=== PATIENT | male | born 1955 | race Caucasian/White ===

== ENCOUNTER 2018-07-18 09:34 | Emergency (ER) | payer MEDICAID, SELFPAY ==
[2018-07-18 09:40] VITALS: BP 151/91; PULSE 108; RESP 16; TEMP 37.4; O2SAT 97
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
[2018-07-18 10:25] VITALS: RESP 16
[2018-07-18 12:15] VITALS: BP 151/91; PULSE 88; RESP 16; TEMP 37.4; O2SAT 97
== END 2018-07-18 12:26 | disposition home or self-care (01) ==
PROVIDERS: Emergency Provider Physician Assistant; PCP Internal Medicine
DX: F41.9 Anxiety disorder, unspecified (principal); M54.9 Dorsalgia, unspecified; I10 Essential (primary) hypertension; Z79.891 Long term (current) use of opiate analgesic
CPT/HCPCS: 36416; 82962; 99283

== ENCOUNTER 2018-09-02 01:19 | Outpatient (CLI) | payer MEDICAID, SELFPAY ==
--- NOTE | 2018-09-02 12:33 | DI.RAD_ITS ---
SYMPTOMS/DIAGNOSIS: PROGRESSIVE LUMBAGO X 5 MONTHS LUMBOSACRAL SPINE: There are no prior comparison exams. The vertebral bodies are well maintained in height. There is severe narrowing of the L 5 - S 1 disc space and circumferentially projecting osteophytes. The remaining disc spaces are well maintained. Small endplate osteophytes are seen at the remaining levels. Facet degenerative changes are present at L 5 - S1. No spondylosis or spondylolisthesis is seen. IMPRESSION: Degenerative disc changes greatest at L 5 - S 1.
== END 2018-09-02 01:39 ==
PROVIDERS: PCP Internal Medicine; Visit Provider Internal Medicine
DX: M54.5 Low back pain (principal); M51.37 Other intervertebral disc degeneration, lumbosacral region
CPT/HCPCS: 72110

== ENCOUNTER 2018-09-20 01:50 | Outpatient (CLI) | payer MEDICAID, SELFPAY ==
--- NOTE | 2018-09-20 14:10 | DI.RAD_ITS ---
SYMPTOMS/DIAGNOSIS: ABRUPT WORSENING LOW BACK PAIN, TENDER RIGHT SACROILIAC JOINT, M53.3, ? SACROILIITIS SI JOINTS: Bilateral DJD is demonstrated. The sacrum is intact. Note is made of disc space narrowing, and discogenic sclerosis and hypertrophic spurring at the L5-S1 level.
== END 2018-09-20 02:10 ==
PROVIDERS: PCP Internal Medicine; Visit Provider Internal Medicine Rheumatology
DX: M54.5 Low back pain (principal); M53.3 Sacrococcygeal disorders, not elsewhere classified
CPT/HCPCS: 72202

== ENCOUNTER 2018-12-27 12:45 | Outpatient (CLI) | payer MEDICAID, SELFPAY ==
--- NOTE | 2018-12-27 06:56 | DI.RAD_ITS ---
SYMPTOMS/DIAGNOSIS: SACROILIAC JOINT DYSFUNCTION PAIN CLINIC SACROILIAC JOINT: Fluoroscopy Time: 12.4 sec C-arm fluoroscopy was utilized by Dr. Anders during a right SI joint injection. Hard copy shows needle placement and injection at the inferior aspect of the right SI joint.
[2018-12-27 12:54] VITALS: BP 155/91; PULSE 95; RESP 18; TEMP 36.6; O2SAT 98
--- NOTE | 2018-12-27 13:49 | PDOC.PAIN_ITS ---
Pain Clinic Procedure Note Current Active Problems Problem Status Onset Sacroiliac joint dysfunction of right side Acute INTRA-ARTICULAR SI JOINT INJECTION JAMARI SNEED has been referred to the [facility] for intra- articular SI joint injection. COMMENTS: I reviewed the notes from Ms. Girard from 11/21/18. Patient was interviewed and the medical record reviewed. There were no medical, pharmacologic, radiographic or other structural contraindications to attempting fluoroscopically guided intra-articular SI joint injection. Risks and expected side effects as well as potential benefit of the procedure were reviewed and voiced concerns addressed. The printed consent form was signed and witnessed. Standard time-out procedure was performed. Patient was placed in the prone position on the fluoroscopy table and automated blood pressure cuff and pulse oximeter applied. The skin entry point for approaching right SI joint was identified under the most advantageous fluoroscopic view and marked. Following thorough Chlorhexadine preparation of the skin and draping and 1% lidocaine infiltration of the skin entry point and subcutaneous tissues, a 22 gauge spinal needle was placed under fluoroscopic guidance into right SI joint was identified under the most advantageous fluoroscopic view and marked. Following thorough Chlorhexadine preparation of the skin and draping and 1% lidocaine infiltration of the skin entry point and subcutaneous tissues, a 22 gauge 3.5 spinal needle was placed under fluoroscopic guidance into right SI joint. Intra-articular placement was confirmed by a clear arthrogram resulting from the injection of 0.25ml Omnipaque 240, 1ml 1% lidocaine, and 80mg Depomedrol were injected intra-articularily with an initial reproduction of a significant component of the usual pain. Vital signs were stable throughout the procedure and were as recorded in the docflowsheet by the nursing staff. If given, dosages of intravenous drugs for anxiolysis and analgesia were documented in MAR. Follow up plans and appointments were discussed with the patient. Post procedure instruction was given as documented in nursing documentation and having met discharge criteria, and was discharged from the [facility]. COMMENTS: This procedure can be completed up to 3 times per 12 months if it is found to be effective. CC: Amber Restrepo
[2018-12-27 13:58] VITALS: BP 125/89; PULSE 91; RESP 18; O2SAT 97
[2018-12-27] MEDS: Omnipaque 240 MG/ML 50 ML BTL IJ (13:59)
[2018-12-27] MEDS: methylPREDNISolone ACETATE 80 MG/ML VIAL IJ (14:00)
== END 2018-12-27 13:05 ==
PROVIDERS: PCP Nurse Practitioner Family; Visit Provider Preventive Medicine Occupational Medicine
DX: M53.3 Sacrococcygeal disorders, not elsewhere classified (principal)
CPT/HCPCS: 27096; 72200; J1040; Q9967

== ENCOUNTER 2019-12-21 16:37 | Outpatient (REF) | payer MEDICAID, SELFPAY ==
[2019-12-21 19:07] LABS: Anion Gap 9.6 mmol/L (3-11); BUN 20 mg/dL (7-18); CO2 27.4 mmol/L (21.0-32.0); CREATININE 1.14 mg/dL (0.70-1.30); Calcium 8.9 mg/dL (8.5-10.1); Calculated LDL 93 mg/dL (<100); Chloride 105 mmol/L (98-107); Cholesterol 194 mg/dL (<200); Glucose 111 mg/dL (74-106); HDL Cholesterol 41 mg/dL (40-60); Potassium 4.2 mmol/L (3.5-5.1); Sodium 142 mmol/L (136-145); Triglyceride 300 mg/dL (<150)
== END 2019-12-21 16:57 ==
LOC: NCHCN 16:37
PROVIDERS: PCP Nurse Practitioner Family; Visit Provider Nurse Practitioner Family
DX: R03.0 Elevated blood-pressure reading, without diagnosis of hypertension (principal); Z13.220 Encounter for screening for lipoid disorders
CPT/HCPCS: 80048; 80061

== ENCOUNTER 2020-01-22 14:56 | Outpatient (REF) | payer MEDICAID, SELFPAY ==
--- NOTE | 2020-01-22 14:35 | SKI_PTH ---
PATIENT: Jasmeet Cardona LOC: [facility] U#:[id number] AGE/SX: 64/M ROOM: RE01/22/[address]: Jose Snyder : 1955 BED: DIS: 01/22/2020 SPEC #: [id number] RECD: 01/23/20 12:41 STATUS: SHAHANA RERamiro #: [id number] OREN: 01/22/20 14:[address]: Jose Snyder DEPT: Surgical Specimen RECD BY: Soheila Mckeon ENTERED: 01/23/20 12:41 SP TYPE: REECE OTHR DR: Amber Restrepo Tissues: 1 - SKIN BIOPSY(SHAVE/PUNCH) Procedures: SKIN LEVEL 4 Comments: [id number]
== END 2020-01-22 15:16 ==
LOC: NCHCN 14:56
PROVIDERS: PCP Nurse Practitioner Family; Visit Provider Internal Medicine
DX: D22.5 Melanocytic nevi of trunk (principal)
CPT/HCPCS: 88305

== ENCOUNTER 2020-08-20 15:42 | Outpatient (REF) | payer MEDICAID, SELFPAY ==
[2020-08-20 19:25] LABS: Abs Immature Grans 0.02 10^3/uL (0.0-0.06); Absolute Basophil Count 0.03 10^3/uL (0.0-0.2); Absolute Eosinophil Count 0.17 10^3/uL (0.0-0.7); Absolute Lymphocyte Count 1.51 10^3/uL (1.2-3.4); Absolute Monocyte Count 0.54 10^3/uL (0.1-0.8); Absolute Neutrophil Count 4.47 10^3/uL (1.2-6.7); Basophils % 0.4; Eosinophils % 2.5; HCT 42.5 % (40.0-50.0); HGB 14.5 g/dL (13.5-17.5); Immature Grans % 0.3; Lymphocytes % 22.4; MCH 29.5 pg (27.0-33.0); MCHC 34.1 % (32.0-36.0); MCV 86.4 fL (80-95); MPV 11.1 fL (8.0-11.0); Neutrophils % 66.4; Nucleated RBC 0 %; Platelet Count 208 10^3/uL (130-400); RBC 4.92 10^6/uL (4.36-5.78); RDW 12.3 % (11.8-14.1); WBC 6.74 10^3/uL (4.4-10.8)
[2020-08-20 19:47] LABS: Iron 71 ug/dL (65-175); Total Iron Binding Capacity 322 ug/dL (250-450); Transferrin Sat 22 % (20-55)
[2020-08-20 19:57] LABS: Hemoglobin A1C 5.8 % (<5.7)
[2020-08-20 20:09] LABS: ALT 26 U/L (16-63); AST 21 U/L (15-37); Albumin 3.8 g/dL (3.4-5.0); Alkaline Phosphatase 96 U/L (46-116); Anion Gap 6.1 mmol/L (3-11); BUN 18 mg/dL (7-18); Bilirubin, Total 0.3 mg/dL (0.2-1.0); CO2 31.9 mmol/L (21.0-32.0); CREATININE 1.2 mg/dL (0.70-1.30); Calcium 8.6 mg/dL (8.5-10.1); Chloride 103 mmol/L (98-107); Ferritin 83 ng/mL (26-388); Folate 9.2 ng/mL (8.6-20.0); Glucose 90 mg/dL (74-106); Magnesium 2.1 mg/dL (1.8-2.4); Potassium 4.2 mmol/L (3.5-5.1); Sodium 141 mmol/L (136-145); TSH (W/Ref FT4) 2.01 uIU/mL (0.36-3.74); Total Protein 6.7 g/dL (6.4-8.2); Vitamin B12 462 pg/mL (193-986)
[2020-08-22 05:08] LABS: Vitamin D 25 Total 26.9 ng/ml (30-100)
== END 2020-08-20 15:43 | disposition home or self-care (01) ==
LOC: NCHCN 15:42
PROVIDERS: PCP Nurse Practitioner Family; Visit Provider Physician Assistant
DX: R53.83 Other fatigue (principal); R73.9 Hyperglycemia, unspecified; R39.11 Hesitancy of micturition; Z72.4 Inappropriate diet and eating habits
CPT/HCPCS: 80053; 82306; 82607; 82728; 82746; 83036; 83540; 83550; 83735; 84443; 85025

== ENCOUNTER 2020-10-08 23:42 | Outpatient (REF) | payer MEDICAID, SELFPAY ==
[2020-10-09 17:23] LABS: PSA, Screening 0.5 ng/mL (0.0-4.5)
== END 2020-10-08 23:43 | disposition home or self-care (01) ==
LOC: NCHCN 23:42
PROVIDERS: PCP Nurse Practitioner Family; Visit Provider Physician Assistant
DX: R39.11 Hesitancy of micturition; Z12.5 Encounter for screening for malignant neoplasm of prostate
CPT/HCPCS: 84153

== ENCOUNTER 2021-04-22 01:37 | Outpatient (CLI) | payer MEDICAID, SELFPAY ==
--- NOTE | 2021-04-22 08:32 | DI.RAD_ITS ---
Exam(s) XR THUMB LT EXAM: XR THUMB LT CLINICAL HISTORY: LT THUMB PAIN, M79.645 TECHNIQUE: COMPARISON: No exams were available for comparison FINDINGS: Four views were obtained. The cartilaginous joint spaces of the thumb appear fairly well maintained. Mild marginal osteophyte formation is noted at multiple sites, most marked at the greater multangul ar 1st metacarpal joint. No other bony or soft tissue abnormality seen. IMPRESSION: Mild DJD of the joints of thumb. RADIATION DOSE DELIVERED: Total DLP
== END 2021-04-22 01:57 ==
PROVIDERS: PCP Nurse Practitioner Family; Visit Provider Physician Assistant
DX: M79.645 Pain in left finger(s) (principal); M18.12 Unilateral primary osteoarthritis of first carpometacarpal joint, left hand
CPT/HCPCS: 73140

== ENCOUNTER 2021-05-09 14:05 | Inpatient (IN) | payer MEDICAID, SELFPAY ==
[2021-05-09] VITALS (76 sets, daily range): BP systolic 115–182; BP diastolic 73–109; PULSE 73–111; RESP 8–34; TEMP 36.9–37.2; O2SAT 79–99
--- NOTE | 2021-05-09 14:00 | RT.EKG_ITS ---
APPROVED REPORT Exam: Resting ECG Reason for Exam: sob Patient Location: E HR:104 bpm ECG Measurements Heart Rate 104 AXIS ME 226 P 61 QRSd 92 QRS 44 QT 346 T 28 QTc 456 Conclusion Sinus tachycardia Prolonged ME interval Anteroseptal Q >35mS, T neg, V1-V2
--- NOTE | 2021-05-09 14:27 | W.ED.GENAD ---
Discharge Plan Disposition Patient Disposition: [facility] INPATIENT Condition: Serious Discharge Details Clinical Impression: Bilateral pulmonary embolism, Elevated troponin I level Admit Date/Time: 05/09/21 19:28 Admit Provider: Fidel Calvin Attending Provider: Fidel Calvin Primary Care Provider: Amber eRstrepo ED Provider: Mary Love Discharge Data Discharge Date/Time-TO BE ENTERED AT DEPARTURE: 05/09/21 21:35 Medical Decision Making <Mary Love - Last Filed: 05/09/21 20:32> 65-year-old male presents to the ER with chief complaint of shortness of breath with exertion. Patient states that shortness of breath worsened yesterday after walking up a hill with some soil. Patient reports that he fell yesterday evening slipping on the wet grass landing on his left hip and side. He denies hitting his head. He also reports that this shortness of breath and heart racing has been ongoing for the last couple of months during increased exercise however, this episode feels different. He denies any chest pain. He denies any nausea vomiting diarrhea. He does endorse a cough productive of yellow sputum. Denies any fever or chills. He does have self reports of possible sleep apnea but does not use a CPAP machine. Past medical history includes GERD, hypertension, history of IV drug abuse, insomnia, anxiety, he does take methadone. EKG was reviewed by Dr. Jasmeet Moya MD ER attending, please see his official report. Old EKG sent by referring facility [place] PCP. Cardiac and work-up ordered, according to the history, Covid test. Differential diagnosis includes but not limited to coronary artery disease, pneumonia, anxiety. EXAM: XR PORTABLE CHEST AP CLINICAL HISTORY: SOB TECHNIQUE: 2D digital imaging was performed. COMPARISON: No exams were available for comparison FINDINGS: LUNGS: Clear. No pleural abnormality seen. HEART: Normal. MEDIASTINUM: Normal. BONES: Unremarkable. IMPRESSION: No acute pulmonary findings. D-dimer elevated 2749, CT chest rule out PE ordered. 1734: Spoke with SYLVIA dillon who reports bilateral PE's with dilated right ventricle. Exam: CTA Chest With Contrast Exam date and time: 05/09/2021 4:28 PM Age: 65 years old COMPARISON: CR XR PORTABLE CHEST AP 05/09/2021 2:47 PM FINDINGS: Pulmonary arteries: There are central filling defects in the lingular and left lower lobar pulmonary arteries. There is a central filling defect in a left upper lobe segmental branch. There is a central filling defect in the right middle lobar branch. There is a central filling defect in a right lower lobe segmental branch. Aorta: Unremarkable. No aortic aneurysm. No aortic dissection. Lungs: No mass or consolidation. Pleural spaces: Unremarkable. No pneumothorax. No pleural effusion. Heart: Unremarkable. No cardiomegaly. No pericardial effusion. Heart RV/LV ratio: The RV to LV ratio is 1.1. Lymph nodes: Unremarkable. No enlarged lymph nodes. Gallbladder and bile ducts: There are calcified stones in the gallbladder. Bones/joints: Unremarkable. No acute fracture. Soft tissues: Unremarkable. IMPRESSION: 1. Multiple bilateral pulmonary emboli at the lobar and segmental levels. 2. Dilated right ventricle suggestive of right heart strain. Thank you for allowing us to participate in the care of your patient. Dictated and Authenticated by: Mary Orellana MD 1743: Spoke with patient regarding CT results, and my recommendation for transfer versus admission he verbalizes understanding. [place] [facility] [place] contact transfer center for transfer request. I also did discuss with patient possibility for transfer to [facility] if needed. 174: Informed by staffing and scheduling coordinator that patient is requesting to go home and not be admitted. 181: I did speak with patient at length regarding the severity of his condition and increased concern regarding right heart strain and bilateral PEs. His repeat troponin has come back slightly elevated at 0.07 I did discuss this with patient as well who verbalized understanding. He is concerned that he does not have electricity and that his pipes will freeze and he does not have anybody to go to his house. I did discuss that if patient chooses not to be admitted or transferred that this would be AGAINST MEDICAL ADVICE. 1812: Dr. Shelton ER attending at to speak with patient. 1818: Patient has agreed to stay at this time after speaking with Dr. Shelton, [facility] [place] called for transfer request, [facility] at bed capacity. 1823: Spoke with [facility] who is also at bed capacity, I did send face sheet, [facility] to speak with [employer] and may call me back. 1915: Spoke with Dr. Calvin with hospitalist regarding patient case and details. He does agree to accept patient for admission at this time. Does recommend telemetry bed status. Informed patient of plan verbalized understanding is in agreement with plan. Patient does appear anxious and does normally take lorazepam. 1939: Discussed plan with patient, he does request a dose of Lorazepam, 1mg PO ordered. 1942: Spoke with Dr. Ryan Gale with interventional radiology and Dr. Danny Silverman medical speech therapist early intervention at [facility] regarding patient case and details. They did determine the patient is intermediate risk due to the heart strain and the slightly elevated troponin however, they do not recommend any further anticoagulation however, if patient does decompensate 50 of alteplase can be given. Dr. Danny Silverman also reported that he would be available for consultation if needed if patient does show signs of decompensation. They recommend patient to be admitted in a monitored setting. <Dov Shelton MD - Last Filed: 05/09/21 23:15> Patient seen, examined, and discussed with ERAN Love. I was asked to see the patient given his refusal of recommended treatment. I had a lengthy conversation with the patient about recommended treatment. He notes he would like to leave in order to make sure that his pipes do not freeze. I explained in detail diagnostic results and recommended treatment and explained that he may suffer life-threatening or lifestyle modifying disease should he leave at this time. He is agreeable to hospitalization here at [facility] but notes that he may need to leave in the morning. Patient is quite anxious. I offered him anxiolytic and he declined. I agree with treatment plan as discussed with ERAN Love. HPI <Mary Love - Last Filed: 05/09/21 20:32> General Mode of arrival: ambulatory. Date/Time Provider Initiated Documentation: 05/09/21 14:06. Limitations to Documentation: no limitations. Information obtained by: patient, RN notes reviewed and old records reviewed. HPI Narrative: 65-year-old male presents to the ER with chief complaint of shortness of breath with exertion. Patient states that shortness of breath worsened yesterday after walking up a hill with some soil. Patient reports that he fell yesterday evening slipping on the wet grass landing on his left hip and side. He denies hitting his head. He also reports that this shortness of breath and heart racing has been ongoing for the last couple of months during increased exercise however, this episode feels different. He denies any chest pain. He denies any nausea vomiting diarrhea. He does endorse a cough productive of yellow sputum. Denies any fever or chills. He does have self reports of possible sleep apnea but does not use a CPAP machine. Past medical history includes GERD, hypertension, history of IV drug abuse, insomnia, anxiety, he does take methadone. Related Data Home Medications Medication Instructions Recorded Confirmed lorazepam 1 mg PO DAILY PRN #1 tab-cap 01/22/14 05/09/21 diphenhydramine HCl 25 mg tablet 12.5 mg PO Q8H PRN tab 11/16/18 05/09/21 hydrocortisone 0.5 % topical cream 1 applic TP BID 11/16/18 05/09/21 clotrimazole-betamethasone 1 applic TOPICAL BID 09/18/20 05/09/21 fluocinonide 1 applic TOPICAL DIRECTED 09/18/20 05/09/21 naloxone [Narcan] 4 mg INTRANASAL PRN PRN 09/18/20 05/09/21 methadone 10 mg/5 mL oral solution 102 mg PO DAILY ml 03/04/21 05/09/21 Allergies Allergy/AdvReac Type Severity Reaction Status Date / Time sulfamethoxazole Allergy Unverified 05/09/21 14:18 [From Bactrim] trimethoprim [From Bactrim] Allergy Unverified 05/09/21 14:18 codeine AdvReac Intermediate GI UPSET Unverified 05/09/21 14:18 ibuprofen AdvReac GI UPSET Unverified 05/09/21 14:18 GARAMYCIN EYE DROPS Allergy Uncoded 05/09/21 14:18 General Stated Complaint: SOB BLANCA: 2 Review of Systems <Mary Love - Last Filed: 05/09/21 20:32> All systems reviewed & are unremarkable except as noted in HPI and below Constitutional Constitutional: Denies headache(s) ENT Ears, Nose, Mouth, and Throat: Reports dizziness (Reports ongoing x 2 weeks), Denies headache(s) and Denies neck pain Cardiovascular Cardiovascular: Denies chest pain, Reports rapid heart rate, Denies leg edema, Denies radiating jaw, neck or arm pain and Reports dyspnea on exertion Respiratory Respiratory: Reports change in phlegm color, Denies hemoptysis, Reports dyspnea on exertion, Denies stridor and Denies wheezing Gastrointestinal Gastrointestinal: Reports belching, Denies melena, Denies diarrhea, Denies nausea and Denies vomiting Musculoskeletal Musculoskeletal: Denies back pain, Denies deformity, Denies arthralgias, Denies limited range of motion and Denies neck pain Neurologic Neurologic: Denies abnormal speech, Denies confusion, Reports dizziness (Reports ongoing x 2 weeks), Denies headache(s) and Denies localized weakness Psychiatric Psychiatric: Reports as per HPI, Reports anxiety and Denies confusion Allergic/Immunologic Allergic/Immunologic: Denies wheezing PFSH <Mary Love - Last Filed: 05/09/21 20:32> Active Problem List (Updated 05/09/21 @ 22:27 by Fidel Calvin) Discharge planning issues (Acute) DVT prophylaxis (Acute) HTN (hypertension) (Acute) Opioid use disorder, moderate, on maintenance therapy (Acute) Bilateral pulmonary embolism (Acute) Elevated troponin I level (Acute) Hives (Acute) Vitamin D deficiency (Acute) Hearing loss, bilateral (Acute) Tinnitus (Acute) Anxiety (Chronic) Tickle in throat (Acute) Globus sensation (Acute) Sacroiliac joint dysfunction of right side (Acute) Medical History (Updated 05/09/21 @ 22:27 by Fidel Calvin) Alopecia areata Chronic back pain Dupuytrens contracture Elevated blood pressure reading without diagnosis of hypertension Erectile dysfunction GERD (gastroesophageal reflux disease) Hematospermia History of hepatitis C s/p treatment History of torn meniscus of left knee Insomnia related to another mental disorder Irritable bowel syndrome 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 In process of weaning off suboxone 2018, previously on methadone. Urinary hesitancy Vertigo Surgical History H/O medial meniscus repair of left knee Family History Father , 80 Bladder cancer Prostate cancer Chronic back pain Cancer History of blood clots Mother Dementia Chronic mental illness care home resident Hypertension Brother Chronic mental illness Sister Multiple sclerosis Chronic mental illness Brother Anxiety History of blood clots Paternal Grandfather Prostate cancer Paternal Uncle Prostate cancer Social History (Updated 05/09/21 @ 22:28 by Fidel Abraham Smoking/Tobacco Use Status: Former Tobacco Use Smoking risk assessment performed?: Yes Alcohol Intake: never Details: Pt reports he hates alcohol and doesn't drink Drug use: Current Sobriety Substance use type: does not use and other Details: former heroin use, on methadone for the past 6 months Household members: none current occupation: Retired Pets and animals: No Other: Lives alone in [id number] home in [place], wood stove and only solar What type of physical activity do you participate in: walking and independent ambulation Do you feel safe at home: Yes Do you feel safe in your relationship?: No Exam <Mary Love - Last Filed: 05/09/21 20:32> Narrative Exam Narrative: Constitutional: Alert and oriented x3. Appears stated age. Normal body habitus. Head: Normocephalic, no trauma. Eyes: Pupils PERRL, Red reflex noted, EOM's intact. Eyelids symmetrical without lesions, discharge, or swelling. ENT: Bilateral TM's WNL, External ear normal to inspection, no mastoid TTP, swelling, or erythema, Nasal turbinates WNL, no nasal discharge. Normal dentition, Posterior pharynx WNL, no exudate. Chest: Sinus tachycardia rate of 101, normal S1, S2, distal pulses intact. Resp: Lungs clear to auscultation bilaterally, no wheezes, rales, or rhonchi. Abdomen: Soft, non-distended, Normoactive bowel sounds all 4 quads. Musculoskeletal: Unable to assess gait, 5/5 strength to all four extremities. Skin: No suspicious rashes or lesions. Capillary refill less than 2 sec. Neurologic: Cranial nerves II-XII intact. Alert and oriented x 3. Motor: No deficits noted. Sensory: Intact bilaterally all 4 extremities. Reflexes: DTR's intact bilaterally.. Hematologic/Lymphatic: No ecchymosis, no lymphadenopathy. Course <Mary Love - [facility] Filed: 05/09/21 20:32> Vital Signs Vital signs: Vital Signs Temperature 37.2 C 05/09/21 14:13 Pulse 104 H 05/09/21 14:13 Respiratory Rate 22 05/09/21 14:13 Blood Pressure 157/99 H 05/09/21 14:13 Pulse Oximetry 99 05/09/21 14:13 Temperature 37.2 C 05/09/21 14:13 Temperature Source Temporal Artery Scan 05/09/21 14:13 Pulse 104 H 05/09/21 14:13 Respiratory Rate 22 05/09/21 14:13 Blood Pressure 157/99 H 05/09/21 14:13 Blood Pressure Position Supine 05/09/21 14:13 Pulse Oximetry 99 05/09/21 14:13 Oxygen Delivery Method Room Air 05/09/21 14:13 Oxygen Flow Rate 0 05/09/21 14:13 Pain Level 0 05/09/21 14:13
[2021-05-09 14:40] LABS: Source Nasal/Nares
[2021-05-09 14:41] LABS: Abs Immature Grans 0.02 10^3/uL (0.0-0.06); Absolute Basophil Count 0.02 10^3/uL (0.0-0.2); Absolute Eosinophil Count 0.09 10^3/uL (0.0-0.7); Absolute Lymphocyte Count 0.67 10^3/uL (1.2-3.4); Absolute Monocyte Count 0.58 10^3/uL (0.1-0.8); Absolute Neutrophil Count 5.31 10^3/uL (1.2-6.7); Basophils % 0.3; Eosinophils % 1.3; HCT 40.2 % (40.0-50.0); HGB 13.8 g/dL (13.5-17.5); Immature Grans % 0.3; MCH 28.9 pg (27.0-33.0); MCHC 34.3 % (32.0-36.0); MCV 84.3 fL (80-95); MPV 9.8 fL (8.0-11.0); Monocytes % 8.7; Neutrophils % 79.4; Nucleated RBC 0 %; Platelet Count 165 10^3/uL (130-400); RBC 4.77 10^6/uL (4.36-5.78); RDW 12.6 % (11.8-14.1); RDW-SD 38.8 fL; WBC 6.69 10^3/uL (4.4-10.8)
[2021-05-09 14:59] LABS: ALT 20 U/L (16-63); AST 17 U/L (15-37); Albumin 3.7 g/dL (3.4-5.0); Alkaline Phosphatase 97 U/L (46-116); BUN 17 mg/dL (7-18); Bilirubin, Total 0.3 mg/dL (0.2-1.0); CREATININE 1.1 mg/dL (0.70-1.30); Calcium 8.7 mg/dL (8.5-10.1); Chloride 105 mmol/L (98-107); Glucose 138 mg/dL (74-106); Potassium 3.9 mmol/L (3.5-5.1); Sodium 141 mmol/L (136-145); Total Protein 7.1 g/dL (6.4-8.2); Troponin I < 0.05 ng/mL (<0.06)
--- NOTE | 2021-05-09 14:59 | DI.RAD_ITS ---
Exam(s) XR PORTABLE CHEST AP EXAM: XR PORTABLE CHEST AP CLINICAL HISTORY: SOB TECHNIQUE: 2D digital imaging was performed. COMPARISON: No exams were available for comparison FINDINGS: LUNGS: Clear. No pleural abnormality seen. HEART: Normal. MEDIASTINUM: Normal. BONES: Unremarkable. IMPRESSION: No acute pulmonary findings. DATA REPOSITORY: RADIATION DOSE DELIVERED:
[2021-05-09 15:31] LABS: COVID-19 PCR Negative (Negative)
--- NOTE | 2021-05-09 16:15 | DI.CT_ITS ---
Exam(s) CT CHEST PE CTA EXAM: CT CHEST PE CTA CLINICAL HISTORY: SOB, Elevated d-dimer. TECHNIQUE: Imaging Protocol: Axial CT angiography was performed with multi-slice acquisition and mu lti-planar and/or 3D reconstructions. CONTRAST MATERIAL: Intravenous: Omnipaque 350 Contrast volume:structured data in ml COMPARISON: No exams were available for comparison FINDINGS: CT angiography of the chest was performed with intravenous infusion of 100 cc of Omnipaque 350. The lungs are clear. No pleural effusion. Tracheobronchial tree appears intact. There are multiple pulmonary emboli visualized including an embolus at the distal left main pulmonary artery and distal right main pulmonary artery. There are multiple lobar and segmental emboli. Ther e appears to be mild right ventricular dilatation suggesting right heart strain. The main pulmonary artery and ascending aorta are of approximately equal diameter which may also indicate mild right hea rt strain. Thoracic aorta is of normal diameter, no thoracic aortic aneurysm or dissection, major br anch vessels appear intact. No mediastinal or hilar adenopathy. Images obtained through the upper abdomen show an apparent small left lobe hepatic cyst. Note is mad e of cholelithiasis without biliary dilatation or gallbladder wall thickening. Visualized portions o f the pancreas and spleen are unremarkable. IMPRESSION: Extensive bilateral pulmonary embolic disease as described above. There appears to be mild right hea rt strain. RADIATION DOSE DELIVERED: 467.79mGy.cm Total DLP 467.79mGy.cm Total DLP CTDIvol DATA REPOSITORY: All CT scans at this facility are submitted to the National Radiology Data Registry (NRDR) Dose Index Registry (DIR) with the [employer] (ACR). RADIATION OPTIMIZATION: All CT scans at this facility use at least one of these dose optimization te chniques: automated exposure control; mA and/or kV adjustment per patient size (includes targeted exa ms where dose is matched to clinical indication); or iterative reconstruction.
[2021-05-09 16:24] LABS: D-Dimer 2749 ng/mlFEU (<500)
[2021-05-09] MEDS: Normal Saline - Diluent 50 ML VIAL IV (16:47)
[2021-05-09] MEDS: Normal Saline Flush 10 ML SYR IVP (16:48)
[2021-05-09] MEDS: Omnipaque 350 MG/ML 100 ML BTL IJ (16:48)
--- NOTE | 2021-05-09 17:30 | RT.EKG_ITS ---
APPROVED REPORT Exam: Resting ECG Reason for Exam: SOB Patient Location: E HR:82 bpm ECG Measurements Heart Rate 82 AXIS IA 190 P 50 QRSd 93 QRS 12 QT 408 T 21 QTc 477 Conclusion Sinus rhythm...normal P axis, V-rate 60- 99
--- NOTE | 2021-05-09 17:34 | DI.VRAD_ITS ---
Addendum created by Mary Orellana MD on 05/09/2021 5:36:32 PM EST: THIS REPORT CONTAINS FINDINGS THAT MAY BE CRITICAL TO PATIENT CARE. The findings were verbally communicated by me to MARISA JAY via telephone conference at 5:36 PM EST on 05/09/2021. The findings were acknowledged and understood. Initial report created on 05/09/2021 5:34:10 PM EST: PROCEDURE INFORMATION: Exam: CTA Chest With Contrast Exam date and time: 05/09/2021 4:28 PM Age: 65 years old Clinical indication: Shortness of breath; Patient HX: SOB, elevated d-dimer TECHNIQUE: Imaging protocol: Computed tomographic angiography of the chest with contrast. 3D rendering (Not supervised by radiologist): MIP and/or 3D reconstructed images were created by the technologist. Total images: 1815 COMPARISON: CR XR PORTABLE CHEST AP 05/09/2021 2:47 PM FINDINGS: Pulmonary arteries: There are central filling defects in the lingular and left lower lobar pulmonary arteries. There is a central filling defect in a left upper lobe segmental branch. There is a central filling defect in the right middle lobar branch. There is a central filling defect in a right lower lobe segmental branch. Aorta: Unremarkable. No aortic aneurysm. No aortic dissection. Lungs: No mass or consolidation. Pleural spaces: Unremarkable. No pneumothorax. No pleural effusion. Heart: Unremarkable. No cardiomegaly. No pericardial effusion. Heart RV/LV ratio: The RV to LV ratio is 1.1. Lymph nodes: Unremarkable. No enlarged lymph nodes. Gallbladder and bile ducts: There are calcified stones in the gallbladder. Bones/joints: Unremarkable. No acute fracture. Soft tissues: Unremarkable. IMPRESSION: 1. Multiple bilateral pulmonary emboli at the lobar and segmental levels. 2. Dilated right ventricle suggestive of right heart strain. Dictated and Authenticated by: Mary Orellana MD. Ordering:SHAUNA Hernandez MD
[2021-05-09] MEDS: Enoxaparin 100 MG/ML SYR SC (17:52)
[2021-05-09 18:00] LABS: INR 1.1 (0.9-1.1); PTT Activated 25.4 sec (21.0-27.5)
[2021-05-09 18:07] LABS: Troponin I 0.07 ng/mL (<0.06)
[2021-05-09 20:34] LABS: NT-proBNP 90 pg/mL (<300)
--- NOTE | 2021-05-09 22:14 | HPE_ITS ---
Date of service: 05/09/21 Time of Service: 21:33 Assessment and Plan Assessment and plan (1) Bilateral pulmonary embolism: Status: Acute Assessment and plan: He has bilateral pulmonary emboli with signs of right heart strain. However blood pressure has been stable and he has not been significantly hypoxic, only borderline tachycardic. No indication for thrombolysis unless he becomes unstable. Given risk, however, he is being monitored in the ICU. Treatment started with low molecular weight heparin. I will transition to apixaban in the morning No clear trigger. He does have a family history in father and brother, but in all cases they were older, so I don't think hypercoagulable work up indicated. No known malignancy, but he does have prostate and pancreatic cancer in first degree relatives. Will get PSA (normal in September) as he does have a history of BPH/LUTS. As outpatient make sure he is UTD with colonoscopy. (2) Elevated troponin I level: Status: Acute Assessment and plan: Type 2 injury due to bilateral PE. On heart monitor. Recheck in with morning labs. Assess risk factors with lipid, A1c and treat to modify as appropriate. (3) Opioid use disorder, moderate, on maintenance therapy: Status: Acute Assessment and plan: He has been stable on methadone with take homes. He denies any illicit drug use in at least a year. Continue methadone (4) HTN (hypertension): Status: Acute Assessment and plan: Has been borderline, a little high here. Monitor for now. (5) Anxiety: Status: Chronic Assessment and plan: This is a chronic issue, hasn't tolerated SSRI in the past, may reconsider. Lorazepam prn okay as he is being monitored. (6) DVT prophylaxis: Status: Acute Assessment and plan: on therapeutic anticoagulation. (7) Discharge planning issues: Status: Acute Assessment and plan: He is being observed in the ICU given right heart strain. He may be able to discharge home if he remains stable and tolerates apixaban. We need to make sure he can get apixaban through insurance before discharge. Full code. History of Present Illness History of Present Illness Chief Complaint: shortness of breth Narrative: 65 yo M with opioid use disorder on methadone who presents with increasing dyspnea on exertion that started about two weeks ago but got much worse since yesterday. He started with some general decreased energy and decreased exercise tolerance and mild dyspnea with his routine walks about 2 weeks ago. He has noted sweating more than usual as well. Yesterday he was doing some work outside and carrying things up hill, felt more severe shortness of breath and heart pounding. This exertional dyspnea and heart pounding continued and he came in for evaluation today. He denies any chest pain. His chest is a little tight. He has not had cough or hemoptysis. He denies any long trip or injury, other than slipping and falling on his pelvis yesterday. He does remember some right foot swelling 2 weeks ago that got better with compression stockings. No recent surgeries. Review of Systems Constitutional Constitutional: Denies anorexia, Denies chills, Denies fever(s), Denies headach e(s), Reports lethargy, Denies weakness and Denies weight gain Eyes Eyes: Denies change in vision, Denies irritation and Denies loss of vision ENT Ears, Nose, Mouth, and Throat: Denies change in voice, Denies dysphagia, Reports vertigo (has been off/on with head movement, not new), Denies headache(s), Denies mouth lesions, Denies nasal congestion, Denies nasal discharge, Reports tinnitus (chronic) and Denies sore throat Cardiovascular Cardiovascular: Denies chest pain, Denies irregular heart rhythm, Denies lightheadedness and Reports palpitations Respiratory Respiratory: Denies cough, Denies hemoptysis, Denies excessive phlegm production and Denies wheezing Gastrointestinal Gastrointestinal: Denies abdominal pain, Denies change in stool character, Denies dysphagia, Denies diarrhea and Denies vomiting Genitourinary Genitourinary: Denies hematuria, Denies dysuria, Reports nocturia (actually better recently) and Denies urinary incontinence Musculoskeletal Musculoskeletal: Reports back pain (chronic) Integumentary/Breasts Skin/Breast: Reports pruritus, Reports rash (had bad hive a month ago, unclear trigger) and Denies skin ulcer Neurologic Neurologic: Reports vertigo (has been off/on with head movement, not new), Denies headache(s), Denies loss of vision, Denies sensory deficit, Denies tremor(s) and Denies weakness Psychiatric Psychiatric: Reports anxiety (chronic), Denies mood swings and Reports panic attacks Endocrine Endocrine: Reports palpitations Hematologic/Lymphatic Hematologic/Lymphatic: Denies easy bleeding Allergic/Immunologic Allergic/Immunologic: Denies wheezing [facility], [facility] Active Problem List (Updated 05/09/21 @ 22:27 by Fidel Calvin) Discharge planning issues (Acute) DVT prophylaxis (Acute) HTN (hypertension) (Acute) Opioid use disorder, moderate, on maintenance therapy (Acute) Bilateral pulmonary embolism (Acute) Elevated troponin I level (Acute) Hives (Acute) Vitamin D deficiency (Acute) Hearing loss, bilateral (Acute) Tinnitus (Acute) Anxiety (Chronic) Tickle in throat (Acute) Globus sensation (Acute) Sacroiliac joint dysfunction of right side (Acute) Medical History (Updated 05/09/21 @ 22:27 by Fidel Calvin) Alopecia areata Chronic back pain Dupuytrens contracture Elevated blood pressure reading without diagnosis of hypertension Erectile dysfunction GERD (gastroesophageal reflux disease) Hematospermia History of hepatitis C s/p treatment History of torn meniscus of left knee Insomnia related to another mental disorder Irritable bowel syndrome 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 In process of weaning off suboxone 2019, previously on methadone. Urinary hesitancy Vertigo Surgical History H/O medial meniscus repair of left knee Family History Father , 80 Bladder cancer Prostate cancer Chronic back pain Cancer History of blood clots Mother Dementia Chronic mental illness halfway resident Hypertension Brother Chronic mental illness Sister Multiple sclerosis Chronic mental illness Brother Anxiety History of blood clots Paternal Grandfather Prostate cancer Paternal Uncle Prostate cancer Social History (Updated 05/09/21 @ 22:28 by Fidel Calvin) Smoking/Tobacco Use Status: Former Tobacco Use Smoking risk assessment performed?: Yes Alcohol Intake: never Details: Pt reports he hates alcohol and doesn't drink Drug use: Current Sobriety Substance use type: does not use and other Details: former heroin use, on methadone for the past 6 months Household members: none current occupation: Retired Pets and animals: No Other: Lives alone in [id number] home in [place], wood stove and only solar What type of physical activity do you participate in: walking and independent ambulation Do you feel safe at home: Yes Do you feel safe in your relationship?: No Meds Allergies and Home Medications Allergies Allergy/AdvReac Type Severity Reaction Status Date / Time sulfamethoxazole Allergy Unverified 05/09/21 14:18 [From Bactrim] trimethoprim [From Bactrim] Allergy Unverified 05/09/21 14:18 codeine AdvReac Intermediate GI UPSET Unverified 05/09/21 14:18 ibuprofen AdvReac GI UPSET Unverified 05/09/21 14:18 GARAMYCIN EYE DROPS Allergy Uncoded 05/09/21 14:18 Home Medications Medication Instructions Recorded Confirmed Type lorazepam 1 mg PO DAILY PRN #1 tab-cap 01/22/14 05/09/21 History diphenhydramine HCl 25 mg tablet 12.5 mg PO Q8H PRN tab 11/16/18 05/09/21 His tory hydrocortisone 0.5 % topical cream 1 applic TP BID 11/16/18 05/09/21 History clotrimazole-betamethasone 1 applic TOPICAL BID 09/18/20 05/09/21 History fluocinonide 1 applic TOPICAL DIRECTED 09/18/20 05/09/21 History naloxone [Narcan] 4 mg INTRANASAL PRN PRN 09/18/20 05/09/21 History methadone 10 mg/5 mL oral solution 102 mg PO DAILY ml 03/04/21 05/09/21 History Exam Narrative Exam Narrative: GEN: Alert and oriented, pleasent and cooperative, gives linear history. No acute distress at rest. HEENT: Head atraumatic. Conjunctiva clear, no icterus. PEERL, EOMI. no rhinorrhea. MMM, OP benign. Neck is supple with no masses or lymphadenopathy, trachea midline LUNGS: CTAB with normal effort CV: RRR with no murmurs, gallops, or rubs. ABD: +BS, soft, NT/ND, no masses EXT: no cyanosis, clubbing, or edema. legs not tender to palpation or ankle dorsiflexion. MSK: No joint redness or swelling NEURO: CN 2-12 grossly intact. Normal movement of 4 extremities. Normal speech and coordination. no tremor SKIN: No rashs or open wounds. PSYCH: anxious mood and affect, normal thought process and content. Results Imaging Chest x-ray: report reviewed (No acute pulmonary findings.) CT scan - chest: report reviewed (1. Multiple bilateral pulmonary emboli at the lobar and segmental levels. 2. Dilated right ventricle suggestive of right heart strain.) EKG: report reviewed and image reviewed Labs Result diagrams: 05/09/21 14:39 05/09/21 14:39 Labs: Laboratory Results - last 24 hr 05/09/21 05/09/21 05/09/21 09:30 14:32 14:39 WBC RBC Hgb Hct MCV MCH MCHC RDW Plt Count MPV Immature Gran % Neutrophils % Lymphocytes % Monocytes % Eosinophils % Basophils % Nucleated RBC % Absolute Neutrophils Absolute Lymphocytes Absolute Monocytes Absolute Eosinophils Absolute Basophils PT INR APTT D-Dimer Sodium Cancelled 141 Potassium Cancelled 3.9 Chloride Cancelled 105 Carbon Dioxide Cancelled 28.0 Anion Gap Cancelled 8.0 BUN Cancelled 17 Creatinine Cancelled 1.1 Estimated GFR/1.73 m2 Cancelled >= 60.00 Glucose Cancelled 138 H Calcium Cancelled 8.7 Magnesium 2.0 Total Bilirubin 0.3 AST 17 ALT 20 Alkaline Phosphatase 97 Troponin I < 0.05 NT-Pro-B Natriuret Pep Total Protein 7.1 Albumin 3.7 COVID-19 Source Nasal/Nares SARS-CoV-2 (PCR) Negative 05/09/21 05/09/21 05/09/21 14:39 14:39 15:35 WBC 6.69 RBC 4.77 Hgb 13.8 Hct 40.2 MCV 84.3 MCH 28.9 MCHC 34.3 RDW 12.6 Plt Count 165 MPV 9.8 Immature Gran % 0.3 Neutrophils % 79.4 Lymphocytes % 10.0 Monocytes % 8.7 Eosinophils % 1.3 Basophils % 0.3 Nucleated RBC % 0 Absolute Neutrophils 5.31 Absolute Lymphocytes 0.67 L Absolute Monocytes 0.58 Absolute Eosinophils 0.09 Absolute Basophils 0.02 PT INR APTT D-Dimer 2749 H Sodium Potassium Chloride Carbon Dioxide Anion Gap BUN Creatinine Estimated GFR/1.73 m2 Glucose Calcium Magnesium Total Bilirubin AST ALT Alkaline Phosphatase Troponin I NT-Pro-B Natriuret Pep 90 Total Protein Albumin COVID-19 Source SARS-CoV-2 (PCR) 05/09/21 05/09/21 15:35 17:43 WBC RBC Hgb Hct MCV MCH MCHC RDW Plt Count MPV Immature Gran % Neutrophils % Lymphocytes % Monocytes % Eosinophils % Basophils % Nucleated RBC % Absolute Neutrophils Absolute Lymphocytes Absolute Monocytes Absolute Eosinophils Absolute Basophils PT 11.0 INR 1.1 APTT 25.4 D-Dimer Sodium Potassium Chloride Carbon Dioxide Anion Gap BUN Creatinine Estimated GFR/1.73 m2 Glucose Calcium Magnesium Total Bilirubin AST ALT Alkaline Phosphatase Troponin I 0.07 H NT-Pro-B Natriuret Pep Total Protein Albumin COVID-19 Source SARS-CoV-2 (PCR) Last Vital Signs Temp 37.2 C 05/09/21 14:13 Pulse 91 H 05/09/21 21:46 Resp 16 05/09/21 21:50 BP 174/89 H 05/09/21 21:46 Pulse Ox 96 05/09/21 21:50
[2021-05-10 00:01] VITALS: BP 139/82; PULSE 72; PULSE 77; RESP 9; O2SAT 92
[2021-05-10 02:00] VITALS: BP 144/80; PULSE 75; RESP 9; TEMP 35.8; O2SAT 94
[2021-05-10 04:01] VITALS: BP 128/94; PULSE 64; PULSE 66; O2SAT 93
[2021-05-10 06:00] VITALS: BP 134/89; PULSE 64; PULSE 65; RESP 9; O2SAT 95
[2021-05-10 07:18] LABS: Anion Gap 8.6 mmol/L (3-11); BUN 17 mg/dL (7-18); CO2 28.4 mmol/L (21.0-32.0); Calcium 8.4 mg/dL (8.5-10.1); Calculated LDL 118 mg/dL (<100); Chloride 104 mmol/L (98-107); Cholesterol 178 mg/dL (<200); Glucose 84 mg/dL (74-106); HDL Cholesterol 38 mg/dL (40-60); Potassium 3.8 mmol/L (3.5-5.1); Sodium 141 mmol/L (136-145); Triglyceride 114 mg/dL (<150); Troponin I < 0.05 ng/mL (<0.06)
[2021-05-10 07:27] LABS: Hemoglobin A1C 5.6 % (<5.7)
[2021-05-10 08:21] VITALS: BP 147/82; PULSE 83; RESP 15; TEMP 36.8; O2SAT 97
[2021-05-10] MEDS: Apixaban 5 MG TAB 10 MG PO (08:27)
--- NOTE | 2021-05-10 08:44 | NUR.NOTE ---
RN confirms patient's daily methadone dose 102mg with the [facility] clinic in [facility]. RN awaiting said dose to be delivered to ICU from pharmacy.Nursing Note:
--- NOTE | 2021-05-10 09:04 | NUR.NOTE ---
RN speaks with pharmacist about morning dose of Methadone which is 102mg. Pharmacist will send said dose to ICU. RN confirmed said dose with patient and [facility].Nursing Note:
[2021-05-10] MEDS: Methadone Liquid 10 MG/ML 102 MG PO (09:19)
--- NOTE | 2021-05-10 09:46 | PDOC.CMIN ---
- If Service Date Differs Date of service: 05/10/21 Time of Service: 09:46 Care Management Initial Assess REASON FOR HOSPITALIZATION:: Bilateral PE's, Right heart strain, elevated troponin PAST MEDICAL HISTORY/PAST SURGICAL HISTORY:: Active Problem List. Discharge planning issues (Acute). DVT prophylaxis (Acute). HTN (hypertension) (Acute). Opioid use disorder, moderate, on maintenance therapy (Acute). Bilateral pulmonary embolism (Acute). Elevated troponin I level (Acute). Hives (Acute). Vitamin D deficiency (Acute). Hearing loss, bilateral (Acute). Tinnitus (Acute). Anxiety (Chronic). Tickle in throat (Acute). Globus sensation (Acute). Sacroiliac joint dysfunction of right side (Acute). Medical History. Alopecia areata. Chronic back pain. Dupuytrens contracture. Elevated blood pressure reading without diagnosis of hypertension. Erectile dysfunction. GERD (gastroesophageal reflux disease). Hematospermia. History of hepatitis C. s/p treatment. History of torn meniscus of left knee. Insomnia related to another mental disorder. Irritable bowel syndrome. IV drug abuse. 1980s. Lumbago with sciatica, left side. Osteoarthritis. Overweight. Pain, joint, shoulder, left. Palpitations. Pigmented nevus. Postinflammatory hyperpigmentation. Psoriasis of scalp. Sacroiliitis. Shoulder pain. Skin tag. Substance abuse. addicted to heroin, then prescription opiate abuse. In process of weaning off suboxone 2018, previously on methadone. Urinary hesitancy. Vertigo. Surgical History. H/O medial meniscus repair of left knee PREVIOUS FUNCTIONAL STATUS/SOCIAL/FAMILY SUPPORTS:: Jasmeet lives in [place], alone. He lives off the grid using wood heat and solar power. His brother, Yogi, lives nearby. He is independent at baseline. CURRENT FUNCTIONAL STATUS:: Jasmeet was sitting up on the edge of his bed when LANCE met with him. He was fully dressed and reported that he had been discharged. He had a question about his medication, which LANCE asked the RN to attend to. LANCE called his pharmacy, sent an Eliquis coupon, and determined that his insurance will cover his new prescription with no copay. LANCE helped him troubleshoot his new cell phone while waiting for his RN to arrive to answer his questions regarding his medication regiment. He stated that he is independent, driving himself home, and does not feel that he needs any services or support at home at this time. CM will continue to follow. ADVANCE DIRECTIVES:: None on file. Has patient been provided with info about the portal/API?: Yes Did the patient sign up for the portal?: No CODE STATUS:: Full Code INSURANCE COVERAGE / FINANCIAL ISSUES:: [employer] CURRENT HOME/COMMUNITY SERVICES/EQUIPMENT:: No current services or equipment. PRIMARY CARE PHYSICIAN:: Amber Restrepo POTENTIAL DISCHARGE NEEDS:: Assistance with new prescription, last dose letter for ANGIE, follow up appointments. PATIENT/FAMILY EDUCATION NEEDS:: Review discharge instructions regarding activity levels and medications, discussion of self care needs including ask me three. ANTICIPATED BARRIERS TO DISCHARGE:: None identified at this time. TRANSPORTATION:: Via private vehicle. PLAN:: Anticipate Jasmeet will return home when medically cleared. CM will call his pharmacy to inquire about the cost of a new prescription for Eliquis, as requested by . He will drive himself home via private vehicle. He will follow up with his PCP and discharge plan of care. CM will continue to follow.
--- NOTE | 2021-05-10 10:59 | NUR.NOTE ---
RN gives Dr. Panchal and update on patient's condition. MD to enter new orders. Patient is not short of breath, has no pain and is resting in bed. Vital signs are stable.Nursing Note:
--- NOTE | 2021-05-10 11:05 | DSE_ITS ---
Date of service: 05/10/21 Time of Service: 11:06 DS: Diagnosis Discharge Diagnosis (1) Bilateral pulmonary embolism: Status: Acute (2) Elevated troponin I level: Status: Acute (3) Opioid use disorder, moderate, on maintenance therapy: Status: Acute (4) HTN (hypertension): Status: Acute (5) Anxiety: Status: Chronic (6) DVT prophylaxis: Status: Acute (7) Discharge planning issues: Status: Acute Discharge Plan Disposition Patient Disposition: HOME Condition: Improving Discharge Details Reason For Visit: Bilateral PE's, Right Heart Strain, Elevated tropo Admit Date/Time: 05/09/21 19:28 Admit Provider: Fidel Calvin Attending Provider: Fidel Calvin Primary Care Provider: Amber Restrepo Hospital Course Hospital Course: This is a 65 yo male with opioid use disorder on methadone who presents with increasing dyspnea on exertion that started about two weeks ago but got much worse since yesterday. He started with some general decreased energy and decreased exercise tolerance and mild dyspnea with his routine walks about 2 weeks ago. He has noted sweating more than usual as well. The day prior to presentation he was doing some work outside and carrying things up hill, felt more severe shortness of breath and heart pounding. This exertional dyspnea and heart pounding continued and he came in for evaluation. He denied any chest pain though he endorsed that his chest was a little tight. He had not had cough or hemoptysis. He denied any long trip or injury, other than slipping and falling on his pelvis the previous day. He did endorse some right foot swelling 2 weeks ago that got better with compression stockings. No recent surgeries. He was found to have bilateral pulmonary emboli with signs of right heart strain on CTA chest. Blood pressure remained stable and he had no significant hypoxia and only borderline tachycardia. No indication for thrombolysis. Given risk, however, he was monitored in the ICU. Treatment started with low molecular weight heparin then transitioned apixaban the following morning after admission. No clear trigger. He does have a family history in father and brother, but in all cases they were older, so doubt hypercoagulable work up indicated. No known malignancy, but he does have prostate and pancreatic cancer in first degree relatives. PSA still pending at time of d/c (normal in September) as he does have a history of BPH/LUTS. As outpatient make sure he is UTD with colonoscopy. An outpt echocardigram ordered. Follow up with PCP in 1 week. Home Meds and New Rx's Prescriptions: New Colette DVT-PE Treat 30D Start 5 mg (74 tabs) tablets,dose pack 5 mg PO ONCE Qty: 74 RF: 0 Continued hydrocortisone 0.5 % cream 1 applic TP BID RF: 0 clotrimazole-betamethasone 1-0.05 % Cream 1 applic TOPICAL BID RF: 0 fluocinonide 0.05 % Solution 1 applic TOPICAL DIRECTED RF: 0 Narcan 4 mg/actuation [place],Non-Aerosol 4 mg INTRANASAL PRN PRNRF: 0 lorazepam 1 MG tablet 1 mg PO DAILY PRNQty: 1 RF: 0 methadone 10 mg/5 mL solution 102 mg PO DAILY RF: 0 No Action diphenhydramine HCl [Benadryl Allergy] 25 mg tablet 12.5 mg PO Q8H PRNRF: 0 Discharge Instructions Activity:: Activity as Tolerated Equipment/Supplies:: No Equipment Needed Diet:: Resume usual diet Discharge Orders Discharge Orders: Discharge Order (Routine); Ordered 05/10/21 Ordered By: Naif Panchal Other Ambulatory Orders: US echocardiogram (Routine) Location: None Selected Ordered By: Naif Panchal Discharge Data Discharge Date/Time-TO BE ENTERED AT DEPARTURE: 05/10/21 13:00 Discharge Comment: Patient pleased he has a plan of treatment. DS: Summary Time Spent with Patient providing and/or coordinating discharge services: Greater than 30 minutes Status at Discharge Functional status at discharge: independent ambulation Overall status at discharge: patient is progressing back to baseline Mental Status: mental status grossly normal Speech and Movement: speech and movement normal Mood: congruent mood Affect: anxious affect Exam Narrative Exam Narrative: GEN: Alert and oriented, pleasent and cooperative, gives linear history. No acute distress at rest. HEENT: Head atraumatic. Conjunctiva clear, no icterus. PEERL, no rhinorrhea. Neck is supple with no masses, trachea midline LUNGS: CTAB with normal effort CV: RRR with no murmurs, gallops, or rubs. ABD: +BS, soft, NT/ND, no masses EXT: No edema or calf tenderness. MSK: No joint redness or swelling NEURO: CN 2-12 grossly intact. Normal movement of 4 extremities. Normal speec h and coordination. no tremor SKIN: No rashs or open wounds. PSYCH: anxious mood and affect, normal thought process and content. Psych Mental Status: mental status grossly normal Speech and Movement: speech and movement normal Mood: congruent mood Affect: anxious affect DS: Data Vitals/I&O Vitals and I&O: Vital Signs Temperature 36.8 C 05/10/21 08:21 Temperature Source Temporal Artery Scan 05/10/21 08:21 Pulse 83 05/10/21 08:21 Pulse Rhythm Regular 05/10/21 08:51 Pulse 65 05/10/21 06:00 Respiratory Rate 15 05/10/21 08:21 Respiratory Effort 05/10/21 08:51 Respiratory Depth Normal 05/10/21 08:51 Respiratory Pattern Normal 05/10/21 08:51 Blood Pressure 147/82 H 05/10/21 08:21 Blood Pressure Mean 100 05/10/21 06:00 Blood Pressure Position Supine 05/09/21 21:59 Pulse Oximetry 97 05/10/21 08:21 Oxygen Delivery Method Room Air 05/10/21 08:21 Oxygen Flow Rate 0 05/10/21 08:21 Pain Level 0 05/10/21 09:19 Intake & Output 05/09/21 05/09/21 05/10/21 11:59 23:59 11:59 Intake Total 210 / 210 Output Total 200 / 200 675 / 675 Balance -200 / -200 -465 / -465 Weight 99.4 kg 99.2 kg Intake: IV 10 Oral 200 / 200 Output: Urine 200 / 200 675 / 675 Other: Urine Color Yellow Yellow Urine Appearance Clear Clear Urine Odor None Voiding Methods Urinal Urinal Data Completed and Pending Labs on day of discharge: Labs from last 24 hours 05/10/21 05/10/21 05/10/21 06:10 06:10 06:10 WBC RBC Hgb Hct MCV MCH MCHC RDW Plt Count MPV Immature Gran % Neutrophils % Lymphocytes % Monocytes % Eosinophils % Basophils % Nucleated RBC % Absolute Neutrophils Absolute Lymphocytes Absolute Monocytes Absolute Eosinophils Absolute Basophils PT INR APTT D-Dimer Sodium 141 Potassium 3.8 Chloride 104 Carbon Dioxide 28.4 Anion Gap 8.6 BUN 17 Creatinine 1.0 Estimated GFR/1.73 m2 >= 60.00 Glucose 84 D Hemoglobin A1c 5.6 Calcium 8.4 L Magnesium Total Bilirubin AST ALT Alkaline Phosphatase Troponin I < 0.05 NT-Pro-B Natriuret Pep Total Protein Albumin Triglycerides 114 Total Cholesterol 178 LDL Cholesterol, Calc 118 H HDL Cholesterol 38 L PSA Screen Pending COVID Source SARS-CoV-2 (PCR) 05/09/21 05/09/21 05/09/21 17:43 15:35 15:35 WBC RBC Hgb Hct MCV MCH MCHC RDW Plt Count MPV Immature Gran % Neutrophils % Lymphocytes % Monocytes % Eosinophils % Basophils % Nucleated RBC % Absolute Neutrophils Absolute Lymphocytes Absolute Monocytes Absolute Eosinophils Absolute Basophils PT 11.0 INR 1.1 APTT 25.4 D-Dimer 2749 H Sodium Potassium Chloride Carbon Dioxide Anion Gap BUN Creatinine Estimated GFR/1.73 m2 Glucose Hemoglobin A1c Calcium Magnesium Total Bilirubin AST ALT Alkaline Phosphatase Troponin I 0.07 H NT-Pro-B Natriuret Pep Total Protein Albumin Triglycerides Total Cholesterol LDL Cholesterol, Calc HDL Cholesterol PSA Screen COVID Source SARS-CoV-2 (PCR) 05/09/21 05/09/21 05/09/21 14:39 14:39 14:39 WBC 6.69 RBC 4.77 Hgb 13.8 Hct 40.2 MCV 84.3 MCH 28.9 MCHC 34.3 RDW 12.6 Plt Count 165 MPV 9.8 Immature Gran % 0.3 Neutrophils % 79.4 Lymphocytes % 10.0 Monocytes % 8.7 Eosinophils % 1.3 Basophils % 0.3 Nucleated RBC % 0 Absolute Neutrophils 5.31 Absolute Lymphocytes 0.67 L Absolute Monocytes 0.58 Absolute Eosinophils 0.09 Absolute Basophils 0.02 PT INR APTT D-Dimer Sodium 141 Potassium 3.9 Chloride 105 Carbon Dioxide 28.0 Anion Gap 8.0 BUN 17 Creatinine 1.1 Estimated GFR/1.73 m2 >= 60.00 Glucose 138 H Hemoglobin A1c Calcium 8.7 Magnesium 2.0 Total Bilirubin 0.3 AST 17 ALT 20 Alkaline Phosphatase 97 Troponin I < 0.05 NT-Pro-B Natriuret Pep 90 Total Protein 7.1 Albumin 3.7 Triglycerides Total Cholesterol LDL Cholesterol, Calc HDL Cholesterol PSA Screen COVID- Source SARS-CoV-2 (PCR) 05/09/21 05/09/21 14:32 09:30 WBC RBC Hgb Hct MCV MCH MCHC RDW Plt Count MPV Immature Gran % Neutrophils % Lymphocytes % Monocytes % Eosinophils % Basophils % Nucleated RBC % Absolute Neutrophils Absolute Lymphocytes Absolute Monocytes Absolute Eosinophils Absolute Basophils PT INR APTT D-Dimer Sodium Cancelled Potassium Cancelled Chloride Cancelled Carbon Dioxide Cancelled Anion Gap Cancelled BUN Cancelled Creatinine Cancelled Estimated GFR/1.73 m2 Cancelled Glucose Cancelled Hemoglobin A1c Calcium Cancelled Magnesium Total Bilirubin AST ALT Alkaline Phosphatase Troponin I NT-Pro-B Natriuret Pep Total Protein Albumin Triglycerides Total Cholesterol LDL Cholesterol, Calc HDL Cholesterol PSA Screen COVID-19 Source Nasal/Nares SARS-CoV-2 (PCR) Negative [facility] Active Problem List Discharge planning issues (Acute) DVT prophylaxis (Acute) HTN (hypertension) (Acute) Opioid use disorder, moderate, on maintenance therapy (Acute) Bilateral pulmonary embolism (Acute) Elevated troponin I level (Acute) Hives (Acute) Vitamin D deficiency (Acute) Hearing loss, bilateral (Acute) Tinnitus (Acute) Anxiety (Chronic) Tickle in throat (Acute) Globus sensation (Acute) Sacroiliac joint dysfunction of right side (Acute) Medical History Alopecia areata Chronic back pain Dupuytrens contracture Elevated blood pressure reading without diagnosis of hypertension Erectile dysfunction GERD (gastroesophageal reflux disease) Hematospermia History of hepatitis C s/p treatment History of torn meniscus of left knee Insomnia related to another mental disorder Irritable bowel syndrome 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 In process of weaning off suboxone 2018, previously on methadone. Urinary hesitancy Vertigo Surgical History H/O medial meniscus repair of left knee Family History Father , 80 Bladder cancer Prostate cancer Chronic back pain Cancer History of blood clots Mother Dementia Chronic mental illness senior care resident Hypertension Brother Chronic mental illness Sister Multiple sclerosis Chronic mental illness Brother Anxiety History of blood clots Paternal Grandfather Prostate cancer Paternal Uncle Prostate cancer Social History Smoking/Tobacco Use Status: Former Tobacco Use Smoking risk assessment performed?: Yes Alcohol Intake: never Details: Pt reports he hates alcohol and doesn't drink Drug use: Current Sobriety Substance use type: does not use and other Details: former heroin use, on methadone for the past 6 months Household members: none current occupation: Retired Pets and animals: No Other: Lives alone in [id number] home in [place], wood stove and only solar What type of physical activity do you participate in: walking and independent ambulation Do you feel safe at home: Yes Do you feel safe in your relationship?: No
--- NOTE | 2021-05-10 11:55 | NUR.NOTE ---
Left AC IV is dc'd and covered with a gauze and paper tape. Patient tolerated same well. Patient is set up with his lunch tray. Nursing Note:
[2021-05-10 12:04] VITALS: BP 140/96; PULSE 87; RESP 20; TEMP 36.1; O2SAT 96
--- NOTE | 2021-05-10 12:37 | NUR.NOTE ---
developer relations manager meets with patient to review discharge plan.Nursing Note:
--- NOTE | 2021-05-10 12:51 | NUR.NOTE ---
RN escorts patient to the parking lot where his car is located. Case Management spent a considerable amount of time answering patient's questions prior to RN walking patient to the parking lot. Patient in good spirits and is happy to be going home with the proper medication for PE's. Vital signs stable. Patient is strong on his feet.Nursing Note:
--- NOTE | 2021-05-10 15:16 | PDOC.CMDIS ---
- If Service Date Differs Date of service: 05/10/21 Time of Service: 15:16 LACE Index Scoring Tool - Questions: Length of Stay (in days): 1 Acuity (Admit via E.D.?): Yes E.D. Visits: 1 - Answers: Total Score: 5 Risk of Readmission: Low Risk Care Management Discharge Reason for Hospitalization: Bilateral PE's, Right heart strain, elevated troponin Discharge Plan: Jasmeet will return home today with no new services. He will drive himself home via private vehicle. He will follow up with his PCP and discharge plan of care. He is happy to be going home. Patient/Family Education Needs: Review discharge instructions and limitations, discussion of self care needs including ask me three.
[2021-05-12 12:24] LABS: PSA, Screening 0.2 ng/mL (0.0-4.5)
== END 2021-05-10 13:00 | disposition home or self-care (01) | DRG 176 ==
LOC: ER 19:57 → ICU 21:35
PROVIDERS: Admitting Provider Family Medicine; Emergency Provider Registered Nurse Emergency; PCP Nurse Practitioner Family; Visit Provider Family Medicine
DX: I26.99 Other pulmonary embolism without acute cor pulmonale (principal); F11.10 Opioid abuse, uncomplicated; I10 Essential (primary) hypertension; F41.9 Anxiety disorder, unspecified; I51.89 Other ill-defined heart diseases; R74.8 Abnormal levels of other serum enzymes; E55.9 Vitamin D deficiency, unspecified; K21.9 Gastro-esophageal reflux disease without esophagitis; Z86.19 Personal history of other infectious and parasitic diseases; K58.9 Irritable bowel syndrome, unspecified; M54.42 Lumbago with sciatica, left side; Z20.822 Contact with and (suspected) exposure to COVID-19
CPT/HCPCS: 36415; 71275; 80048; 80053; 80061; 84153; 87635; 93005; 96372; 99285; 71045; 83036; 83735; 83880; 84484; 85025; 85379; 85610; 85730; 93010; 99239; J1650; J3490

== ENCOUNTER 2021-05-13 07:37 | Emergency (ER) | payer MEDICAID, SELFPAY ==
[2021-05-13] VITALS (45 sets, daily range): BP systolic 122–191; BP diastolic 67–98; PULSE 63–109; RESP 10–22; TEMP 36.7; O2SAT 88–98
--- NOTE | 2021-05-13 07:30 | RT.EKG_ITS ---
APPROVED REPORT Exam: Resting ECG Reason for Exam: chest pain Patient Location: E HR:107 bpm ECG Measurements Heart Rate 107 AXIS CO 202 P 62 QRSd 93 QRS 27 QT 357 T 48 QTc 475 Conclusion Sinus tachycardia...rate> 99 Probable left atrial enlargement...P >50mS, <-0.10mV V1. Sinus. No STEMI. I have reviewed and interpreted ECG and agree with software generated interpretation.
--- NOTE | 2021-05-13 07:45 | DI.RAD_ITS ---
Exam(s) XR PORTABLE CHEST AP EXAM: XR PORTABLE CHEST AP CLINICAL HISTORY: SOB. TECHNIQUE: 2D digital imaging was performed. COMPARISON: CR XR PORTABLE CHEST AP from 05/09/2021 FINDINGS: LUNGS: Clear. No pleural abnormality seen. HEART: Normal. MEDIASTINUM: Normal. OTHER FINDINGS: None. IMPRESSION: No acute pulmonary findings. DATA REPOSITORY: RADIATION DOSE DELIVERED: Total DLP
--- NOTE | 2021-05-13 07:49 | ED.GENADUL_ITS ---
Discharge Plan Disposition Patient Disposition: HOME Condition: Stable Discharge Details Clinical Impression: Chest pain Primary Care Provider: Amber Restrepo ED Provider: Sherly Ron Home Meds and New Rx's Prescriptions: Continued diphenhydramine HCl [Benadryl Allergy] 25 mg tablet 12.5 mg PO Q8H PRNRF: 0 hydrocortisone 0.5 % cream 1 applic TP BID RF: 0 clotrimazole-betamethasone 1-0.05 % Cream 1 applic TOPICAL BID RF: 0 fluocinonide 0.05 % Solution 1 applic TOPICAL DIRECTED RF: 0 Narcan 4 mg/actuation [place],Non-Aerosol 4 mg INTRANASAL PRN PRNRF: 0 lorazepam 1 MG tablet 1 mg PO DAILY PRNQty: 1 RF: 0 methadone 10 mg/5 mL solution 102 mg PO DAILY RF: 0 Eliquis DVT-PE Treat 30D Start 5 mg (74 tabs) tablets,dose pack 5 mg PO ONCE Qty: 74 RF: 0 Discharge Instructions Instructions: Chest Pain (ED) Additional Instructions: Your exam and labs are reassuring here today. Please continue with your recent discharge instructions. Please continue with your blood thinners. Please keep your upcoming appointment for your echocardiogram. Please follow-up with your primary care next 1 to 2 weeks for reevaluation. If you develop any recurrent chest pain, shortness of breath, difficulty breathing, fever/chills or other new/worsening symptoms please seek care urgently once again. Referrals: Amber Restrepo, [facility] [Primary Care Provider] - Discharge Data Discharge Date/Time-TO BE ENTERED AT DEPARTURE: 05/13/21 11:55 Medical Decision Making Patient is a pleasant 65 year old male presenting today with c/c left-sided chest pain. States that this occurred at 730 this morning and was a 2 out of 10 that felt like someone gripping his side. He states that this lasted for about 15 minutes, no pain since. States that he was driving at the time of the discomfort. Patient was recently admitted and treated for bilateral pulmonary emboli. Patient denies missing any doses of his anticoagulation. States he did take this this morning. He denies any increase short of breath. Denies any substernal pain. Denies any radiation of pain. Denies any nausea vomiting. Denies any abdominal pain. No fevers or chills. Has not had pain like this historically. Since being discharged, patient states that he has been trying to resume some of his day-to-day activities such as light gardening. States that he has been doing well with this has not been having any chest pain but has had to move slower secondary to fatigue that he been experiencing since being discharged. He states that overall his shortness of breath is improving since the time of discharge. Reviewed notes from recent discharge. Patient was discharged on 05/10/2021. At that time, patient had been admitted for bilateral pulmonary emboli, elevated troponin, hypertension. Patient was admitted, he was noted to have a right heart strain on CTA. Patient did not suffer any significant hypoxia but did have some borderline tachycardia, consistent with worsening at this time. We do not have indication at that time for thrombolysis. Patient was monitored in the ICU and low molecular weight heparin was initiated with a ultimate transition to apixaban. On exam, patient appears nontoxic. He is resting comfortably. He was initially quite hypertensive at 191/98. Blood pressure at the time of evaluation was 152/86. Heart rate of 84. She is 98% on room air. His lungs are clear, no respiratory distress. I do not note any rash or reproducible pain. His pain is quite far lateral over the mid axillary line. No pain currently. No abdominal discomfort. Denies any alcohol intake. Last Patient is quite well over this low mid axillary line. Will obtain lipase as well as cardiac work-up. Lungs are clear. Normal cardiac exam. No lower extremity edema, calves are soft and nontender. Considered ACS, muslce discomfort, infectious etiology, pancreatitis vs. other. History and exam not consistent with dissection. His SOB has been improving and O2 maintained, I do not see indication to persue repeat CTA at this time. Chest x-ray reviewed by radiologist: FINDINGS: LUNGS: Clear. No pleural abnormality seen. HEART: Normal. MEDIASTINUM: Normal. OTHER FINDINGS: None. IMPRESSION: No acute pulmonary findings. Labs reviewed. No leukocytosis. Stable H&H. CMP significant for slightly low potassium which is most monitored here, potassium 3.4. Initial troponin within normal limits. repeat troponin remains WNL. Discussed findings with the patient. His BP has been down trending. He has been eating/drinking without recurrent synptoms. O2 rermains stable. Patient and I discussed disposition. As his pain was not exertional, he does not have right heart strain on ECG, his SOB with the PE has been improving and he has remained stable here, feel that he is safe for d/c to home. Patient agrees with this plan. He is alrerady scheduled for an outpatient echo next week. Strict return precautions discussed. Advised close f/u with this PCP. All of his questions and concerns were addressed, he is in agreement with thtis plan. HPI General Mode of arrival: ambulatory . Date/Time Provider Initiated Documentation: 05/13/21 07:49 . Limitations to Documentation: no limitations . Information obtained by: patient, RN notes reviewed and old records reviewed . History of Present Illness 65 year old M presents to the emergency department with the chief complaint of chest pain, described as mild, with intensity rated at 2. Quality is described as aching (feels like gripping on far lateral chest wall), and is localized to the chest. Patient reports no radiation. Patient started experiencing this hour(s) and it has been now resolved. No relieving factors improve symptom(s), No exacerbating factors reported (ccame on when driving) . Patient notes chest pain; denies cough, diaphoresis, fever/chills, loss of appetite, nausea/vomiting, rash, shortness of breath (has had SOB associated with known PE but states this has been improving, no change with CP) and syncope. Patient did receive the following treatments prior to arrival, none Related Data Home Medications Medication Instructions Recorded Confirmed lorazepam 1 mg PO DAILY PRN #1 tab-cap 01/22/14 05/13/21 diphenhydramine HCl 25 mg tablet 12.5 mg PO Q8H PRN tab 11/16/18 05/13/21 hydrocortisone 0.5 % topical cream 1 applic TP BID 11/16/18 05/13/21 Narcan 4 mg INTRANASAL PRN PRN 09/18/20 05/13/21 clotrimazole-betamethasone 1 applic TOPICAL BID 09/18/20 05/13/21 fluocinonide 1 applic TOPICAL DIRECTED 09/18/20 05/13/21 methadone 10 mg/5 mL oral solution 102 mg PO DAILY ml 03/04/21 05/13/21 Eliquis DVT-PE Treat 30D Start 5 mg PO ONCE #74 dose pk 05/10/21 05/13/21 Previous Rx's Medication Instructions Recorded Eliquis DVT-PE Treat 30D Start 5 mg PO ONCE #74 dose pk 05/10/21 Allergies Allergy/AdvReac Type Severity Reaction Status Date / Time sulfamethoxazole Allergy Unverified 05/09/21 14:18 [From Bactrim] trimethoprim [From Bactrim] Allergy Unverified 05/09/21 14:18 codeine AdvReac Intermediate GI UPSET Unverified 05/09/21 14:18 ibuprofen AdvReac GI UPSET Unverified 05/09/21 14:18 GARAMYCIN EYE DROPS Allergy Uncoded 05/09/21 14:18 General Stated Complaint: Chest Pain BLANCA: 2 Review of Systems Constitutional Constitutional: Reports as per HPI, Denies chills, Denies fever(s), Denies headache(s) and Denies poor appetite ENT Ears, Nose, Mouth, and Throat: Denies dizziness and Denies headache(s) Cardiovascular Cardiovascular: Reports as per HPI, Reports chest pain, Reports chest pain at rest, Denies chest pain with activity, Denies leg edema, Denies lightheadedness, Denies radiating jaw, neck or arm pain, Reports dyspnea and Reports dyspnea on exertion (known PE, states that his SOB is improving, now able to garden) Respiratory Respiratory: Reports as per HPI, Denies chest congestion, Denies cough, Denies pain on inspiration, Denies pain with cough, Reports dyspnea, Reports dyspnea on exertion (known PE, states that his SOB is improving, now able to garden) and Denies wheezing Gastrointestinal Gastrointestinal: Reports as per HPI, Denies abdominal pain, Denies diarrhea, Denies nausea and Denies vomiting Genitourinary Genitourinary: Denies system reviewed and no additional complaints, except as documented (denies change in urinary habits) Musculoskeletal Musculoskeletal: Reports as per HPI and Denies back pain Integumentary/Breasts Skin/Breast: Reports as per HPI and Denies rash Neurologic Neurologic: Reports as per HPI, Denies dizziness and Denies headache(s) Allergic/Immunologic Allergic/Immunologic: Denies wheezing [facility] Active Problem List Discharge planning issues (Acute) DVT prophylaxis (Acute) HTN (hypertension) (Acute) Opioid use disorder, moderate, on maintenance therapy (Acute) Bilateral pulmonary embolism (Acute) Elevated troponin I level (Acute) Hives (Acute) Vitamin D deficiency (Acute) Hearing loss, bilateral (Acute) Tinnitus (Acute) Anxiety (Chronic) Tickle in throat (Acute) Globus sensation (Acute) Sacroiliac joint dysfunction of right side (Acute) Medical History Alopecia areata Chronic back pain Dupuytrens contracture Elevated blood pressure reading without diagnosis of hypertension Erectile dysfunction GERD (gastroesophageal reflux disease) Hematospermia History of hepatitis C s/p treatment History of torn meniscus of left knee Insomnia related to another mental disorder Irritable bowel syndrome 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 In process of weaning off suboxone 2018, previously on methadone. Urinary hesitancy Vertigo Surgical History H/O medial meniscus repair of left knee Family History Father , 80 Bladder cancer Prostate cancer Chronic back pain Cancer History of blood clots Mother Dementia Chronic mental illness care home resident Hypertension Brother Chronic mental illness Sister Multiple sclerosis Chronic mental illness Brother Anxiety History of blood clots Paternal Grandfather Prostate cancer Paternal Uncle Prostate cancer Social History Smoking/Tobacco Use Status: Former Tobacco Use Smoking risk assessment performed?: Yes Alcohol Intake: never Details: Pt reports he hates alcohol and doesn't drink Drug use: Current Sobriety Substance use type: does not use and other Details: former heroin use, on methadone for the past 6 months Household members: none current occupation: Retired Pets and animals: No Other: Lives alone in [id number] home in [place], wood stove and only solar What type of physical activity do you participate in: walking and independent ambulation Do you feel safe at home: Yes Do you feel safe in your relationship?: Yes Exam Const General: cooperative, healthy appearing, comfortable, no acute distress, well developed and anxious Nutritional Appearance: average body habitus and well nourished Orientation: alert, awake and oriented x3 [facility] Head: normal to inspection Ears: hearing grossly normal bilaterally Mouth: moist mucous membranes Chest Chest: normal inspection of the chest, normal palpation of entire chest wall and no crepitus Resp Effort & Inspection: normal respiratory effort, able to speak in complete sentences and no respiratory distress Auscultation: clear to auscultation bilaterally, no rales, no rhonchi and no wheezes Cardio Rate: regular rate Rhythm: regular rhythm Heart Sounds: S1 normal and S2 normal GI Inspection: normal to inspection, no edema and non-distended Palpation: soft, no hepatosplenomegaly, not firm, no guarding, not rigid and nontender Auscultation: normal bowel sounds Back/Spine/Pelvis Back: no CVA tenderness Thoracic/Lumbar Spine: thoracic and lumbar spine normal to inspection Skin General skin exam: no rashes or lesions noted Trauma: no lacerations or abrasions Neuro General: patient alert, patient awake and patient oriented x3 Cognition: normal cognition Speech: speech normal Gait: normal gait Extrem General: normal to inspection, capillary refill normal, no pedal edema, no calf tenderness and normal gait Psych Appearance: grossly normal and well kempt Mental Status: mental status grossly normal Speech and Movement: speech and movement normal Course Vital Signs Vital signs: Vital Signs Temperature 36.7 C 05/13/21 07:41 Pulse 109 H 05/13/21 07:41 Respiratory Rate 22 05/13/21 07:41 Blood Pressure 191/98 H 05/13/21 07:41 Pulse Oximetry 98 05/13/21 07:41 Temperature 36.7 C 05/13/21 07:41 Temperature Source Oral 05/13/21 07:41 Pulse 109 H 05/13/21 07:41 Respiratory Rate 22 05/13/21 07:41 Blood Pressure 191/98 H 05/13/21 07:41 Blood Pressure Position Supine 05/13/21 07:41 Pulse Oximetry 98 05/13/21 07:41 Oxygen Delivery Method Room Air 05/13/21 07:41 Oxygen Flow Rate 0 05/13/21 07:41
[2021-05-13 08:16] LABS: Abs Immature Grans 0.03 10^3/uL (0.0-0.06); Absolute Basophil Count 0.04 10^3/uL (0.0-0.2); Absolute Eosinophil Count 0.41 10^3/uL (0.0-0.7); Absolute Lymphocyte Count 2.02 10^3/uL (1.2-3.4); Absolute Monocyte Count 0.98 10^3/uL (0.1-0.8); Absolute Neutrophil Count 5.92 10^3/uL (1.2-6.7); Basophils % 0.4; Eosinophils % 4.4; HCT 44.4 % (40.0-50.0); HGB 14.8 g/dL (13.5-17.5); Immature Grans % 0.3; Lymphocytes % 21.5; MCH 28.6 pg (27.0-33.0); MCHC 33.3 % (32.0-36.0); MCV 85.9 fL (80-95); MPV 10.5 fL (8.0-11.0); Monocytes % 10.4; Nucleated RBC 0 %; Platelet Count 204 10^3/uL (130-400); RBC 5.17 10^6/uL (4.36-5.78); RDW 12.7 % (11.8-14.1); RDW-SD 39.8 fL
[2021-05-13 08:29] LABS: ALT 25 U/L (16-63); AST 24 U/L (15-37); Albumin 4.1 g/dL (3.4-5.0); Alkaline Phosphatase 107 U/L (46-116); Anion Gap 8.1 mmol/L (3-11); BUN 17 mg/dL (7-18); Bilirubin, Total 0.4 mg/dL (0.2-1.0); CO2 28.9 mmol/L (21.0-32.0); Calcium 8.7 mg/dL (8.5-10.1); Chloride 104 mmol/L (98-107); Glucose 105 mg/dL (74-106); Potassium 3.4 mmol/L (3.5-5.1); Sodium 141 mmol/L (136-145); Total Protein 7.6 g/dL (6.4-8.2)
[2021-05-13 08:31] LABS: Troponin I < 0.05 ng/mL (<0.06)
[2021-05-13] MEDS: Potassium Chloride 20 MEQ TABCR PO (08:41)
[2021-05-13 08:57] LABS: Lipase 92 U/L (73-393)
[2021-05-13 11:15] LABS: Troponin I < 0.05 ng/mL (<0.06)
== END 2021-05-13 11:55 | disposition home or self-care (01) ==
PROVIDERS: Emergency Provider Physician Assistant; PCP Nurse Practitioner Family
DX: R07.9 Chest pain, unspecified (principal); R06.02 Shortness of breath
CPT/HCPCS: 36415; 80053; 83690; 93005; 99284; 71045; 83735; 84484; 85025; 93010; 99283

== ENCOUNTER 2021-05-20 01:02 | Outpatient (CLI) | payer MEDICAID, SELFPAY ==
--- NOTE | 2021-05-20 14:55 | DI.US_ITS ---
APPROVED REPORT EXAM: Comprehensive 2D, Doppler, and color-flow Echocardiogram Patient Location: Out-Patient Marking Stitcher: Calli Palacio RDCS (AE) Indications: Pulmonary emobolism Other Information Study Quality: Adequate Conclusion Normal left ventricular wall thickness and chamber size. Estimated ejection fraction is 60%. Wall m otion is normal Normal right ventricular size and systolic function Both atria are normal in size There is no structural or hemodynamically significant valvular disease Normal estimated right ventricular systolic pressure, 24 mmHg Wall motion Left Ventricle The left ventricle is normal size. The left ventricular systolic function is normal. The left ventric ular ejection fraction is within the normal range. There is normal left ventricular wall thickness. T here is normal LV segmental wall motion. There is no ventricular septal defect visualized. LVEF is 60 %. Right Ventricle The right ventricle is normal size. The right ventricular systolic function is normal. The RVSP is 24 .4 mmHg. Atria The left atrium size is normal. The right atrium size is normal. The interatrial septum is intact wit h no evidence for an atrial septal defect. Aortic Valve The aortic valve is normal in structure. Aortic valve is trileaflet. There is no aortic valvular sten osis. No aortic regurgitation is present. Mitral Valve The mitral valve is normal in structure. No evidence of mitral valve stenosis. Trace mitral regurgita tion. Tricuspid Valve The tricuspid valve is normal in structure. There is no tricuspid valve stenosis. Trace tricuspid reg urgitation. Pulmonic Valve The pulmonary valve is normal in structure. There is no pulmonic valvular stenosis. There is no pulmo eda valvular regurgitation. Great Vessels The aortic root is normal in size. The ascending aorta is normal in size. Aortic arch is normal in ca liber. IVC is normal in size and collapses >50% with inspiration. Pericardium There is no pericardial effusion. 2D Dimensions IVSD d PLAX 0.92 cm M: 0.6-1.2 LV Vol A2C d MOD 86.8 mL LVPW d PLAX 0.92 cm M: 0.6 - 1.2 LV Vol A4C d MOD 91.8 mL LVID d PLAX 4.53 cm M: 4.2 - 5.8 LA vol/ BSA A2C s A-L 23.6 mL/m2 LVDs 3.05 cm M: 2.5 - 4.0 LA vol/ BSA A4C s A-L 15.1 mL/m2 Ao Root d 2.96 cm M: 3.1 - 3.7 LA Vol/ BSA Biplane s A-L 19.1 mL/m2 RA Area A4C 9.56 cm2 LA Area A4C s MOD 13.97 cm2 RA Vol/ BSA A4C s A-L 8.2 mL/m2 LA Area A2C s MOD 17.30 cm2 Ao Asc Diam d 3.35 cm M: 2.6 - 3.4 LV EF A4C MOD 60.4 % LV EF Teichholz 60.7 % LV EF A2C MOD 61.2 % LVEF (Tom's) 61.45 % M: 52 - 72 LV EF Biplane MOD 61.4 % LV Volume 66.32 mL M: 62 - 150 SV 55.99 mL LV Volume Index 30.28 mL/m2 M: 34 - 74 SV Index 25.51 mL/m2 LV Vol Biplane MOD 91.1 mL FS 32.30 % M-Mode TAPSE 2.60 cm (M/F) >1.7 LV Diastology MV E' medial 0.094 (>0.07 m/s) E/A Ratio 0.9 LV E/e MED 7.20 (<14) MV E Vmax 0.68 (0.4-1.3 m/s) MV E' lateral 0.118 (>0.1 m/s) MV A Vmax 0.75 (0.4-1.3 m/s) LV E/e LAT 5.70 (<14) MV E/A Ratio 0.90 MV E/E' medial 7.24 MV E/E' lateral 5.74 Aortic Valve LVOT Area 3.62 cm2 AoV Area Vmax 2.75 cm2 LVOT Vmax 0.83 m/s AoV Area/ BSA (Vmax) 1.26 cm2/m2 LVOT Mean Jerry. 0.55 m/s ISIS Mean Jerry. 2.64 cm2 LVOT Peak Grad 2.7 mmHg ISIS Mean Jerry. Index 1.21 cm2/m2 LVOT Mean Grad 1.4 mmHg LVOT VTI 0.169 m LVOT Diam s 2.10 cm AoV Vmax 1.09 m/s Velocity Ratio 0.76 AoV Mean Jerry. 0.76 m/s AoV Peak Grad 4.7 mmHg LVOT SV 61.02 mL AoV Mean Grad 2.6 mmHg AoV VTI 0.220 m AoV Area VTI 2.77 cm2 AoV Area/ BSA (VTI) 1.26 cm/m2 Mitral Valve MV DT 204 (160-240 msec) MV PHT 59 msec MV Area PHT 3.71 cm2 MV VTI 0.237 m MV Area VTI 2.58 (4.0-6.0 cm2) Pulmonary Valve PV Vmax 0.91 (0.5-1.5 m/s) RVOT Peak Gr. 1.07 mmHg PV Peak Grad 3.3 mmHg RVOT Mean Gr. 0.60 mmHg PV Mean Grad 1.8 mmHg RVOT VTI 0.112 m PV VTI 0.186 m RVOT Vmax 0.52 m/s Tricuspid Valve TR Peak Grad 21.4 mmHg TR Vmax 2.31 m/s RA Pressure 3.00 mmHg RVSP (TR) 24.4 mmHg
== END 2021-05-20 01:22 ==
PROVIDERS: PCP Nurse Practitioner Family; Visit Provider Family Medicine
DX: I26.99 Other pulmonary embolism without acute cor pulmonale (principal)
CPT/HCPCS: 93306

== ENCOUNTER 2021-10-27 01:46 | Outpatient (CLI) | payer MEDICAID, SELFPAY ==
--- OUTSIDE RECORDS SUMMARY | 2021-10-27 01:48 | XMS_ITS | Encounter Summary ---
:1955 Author Care Team Providers Name Role Phone Macarena QUINN Primary Care Provider [phone] Reason for Visit SLEEP CLINIC New Adult Patient Assessment and Plan Assessment Note I provided greater than 60 minutes in the care of this patient, more than half the time was spent in [id number] couns eling. 1. Snoring Pleasant 66-year-old male pres ents for further evaluation of snoring, daytime somnolence and frequent nocturnal awakenings, choking, memory and concentration changes, poor quality sleep. Crowd ed airway. ESS 04/13, [place] 08/21. Weight 240.4 lbs, BMI 34.5 weight gain over the past 12 months. Patient has symptoms and an exam consistent with obstructive sleep apnea. In lab sleep study should be p erformed. Today we had a thorough discus roma about the pathophysiology of obstructive sleep apnea. The sleep study procedure was discussed with the patient and he is in good understanding of the plan of care. Although he does have a hx of anx iety, he felt he would be able to sleep on the night of his study. He will return to discuss the results of his study. SIGNIFICANT COMORBIDITIES: pulmonary emb olism (newly diagnosed 3 months ago(on eliquis), hospitalized at [facility] x 2 days), paroxysmal nocturnal dyspnea, palpitations, obesity, insomnia, elevated blood pre ssure, daytime somnolence, anxiety, IBS, hx IVDU currently on methadone through [facility] History hep C with successful treatment, chronic back pain, OA, lumbar DDD, GERD. ? polysomnography, diagnosti c (PROC) - Obtain supine and lateral position sleep for comparison. Document snoring i ntensity. Document medications taken on night of sleep study. please schedule PSG in S t. J (closer for patient) hx IVDU, methadone 93 mg QAM takes eliquis Qevening, will b ring med to sleep study 2. Health education given ? learning about sleeping we ll 3. History of pulmonary embolus hx of unprovoked multiple pulm onary emboli, dx 3 months ago, very SOB, tachycardia prompted further evaluation. Now on eliquis 5 mg BID, pt reports new patient appt. scheduled next week with [facility]? 4. Elevated blood pressure initially 169/80, recheck righ t arm 146/91, Discussion Note Remember to always take precautio ns on drowsy driving. If you experience sleepiness while driving, find a safe area to sample puller and take a break. Research suggests taking a power nap (15 to 20 pardeep agapito) and/or coffee (or caffeine containi ng food such as dark chocolate) may be effective aides. As always, you should use your judgement on whether to drive at all, if you are sleep deprived or feeling sleepy. Thank you for the kind opportunity to pa rticipate in your medical care. You expressed good understanding of your diagnosis and treatment, and agreed to proceed with the plan we discussed together. If yo u have any questions or concerns prior t o your next appointment, please call Sleep Clinic. Plan of Care Patient Instructions We discussed signs and symptoms you are exhibiting that may be due to Obstructive Sleep Apnea or other sleep disorders. We went over sleep conditions that I suspect you may have that will benefit from further evaluation. The next step is to diagnose your sleep disorder through sleep study testing. We will get permission from your insuran ce to do the sleep study. Call us back in 2 to 3 weeks if you do not get a call from us about scheduling your sleep study. Bring all your home medications to the sleep study including any sleep aids. If you have further concerns on falling asleep for the sleep study, we do have Ambien 5 to 10 mg to be used as needed. Forbes tabatha, please note you should make arrange ments for a ride home in case you get morning drowsiness from taking sleep aid. Please call [facility] if you ar e not able to make it to your sleep study Remember the sleep lab policy is No Smo steve during Sleep Study. Reminders Provider Appointments None recorded. ? ? Lab None recorded. ? ? Referral None recorded. ? ? Procedures Polysomnography, 10/02/2021 ? Diagnostic (PROC) Surgeries None recorded. ? ? Imaging None recorded. ? ? Medications Name Start Date ? ? betamethasone dipropionate 0.05 % lotion ? APPLY A FEW DROPS TO THE AFFECTED AREA( S) BY TOPICAL ROUTE 2 TIMES PER DAY IN THE MORNING AND AT BEDTIME ; RUB IN GENTLY AND COMPLETELY Eliquis 5 mg tablet ? Take 1 tablet twice a day by oral route. lorazepam 1 mg tablet ? Take 1 tablet twice a day by oral route as needed. methadone 10 mg/5 mL oral solution ? Take 97 mg every day by oral route. Narcan 4 mg/actuation nasal spray ? Take by nasal route as needed. nystatin [id number] unit/g topical cream ? APPLY TO THE AFFECTED AREA(S) BY TOPICAL ROUTE 2 TIME S PER DAY Medications Administered None recorded. Vitals Height Weight BMI Blood Pressure 5 ft 10 in 240.4 lbs 34.5 kg/m2 169/80 mm[Hg] Results Lab Results None recorded. Allergies Code Code System Name Reaction Severity Onset 091849 RxNorm Bactrim ? ? ? 2670 RxNorm Codeine ? ? ? Garamycin ? ? ? 5640 RxNorm Ibuprofen ? ? ? Problems Name Status Onset Date Source ? Vitamin D Deficiency Active 10/01/2021 ? Overweight Active 10/01/2021 ? Anxiety Active 10/01/2021 ? Erectile Dysfunction Active 10/01/2021 ? Dependent Drug Abuse Active 10/01/2021 ? Insomnia Active 10/01/2021 ? Benign Paroxysmal Positional Vertigo Active 10/01/2021 ? Tinnitus Active 10/01/2021 ? Bilateral Hearing Loss Active 10/01/2021 ? Pulmonary Embolism Active 10/01/2021 ? Non-neoplastic Nevus Active 10/01/2021 ? Gastroesophageal Reflux Disease Active 10/01/2021 ? Irritable Bowel Syndrome Active 10/01/2021 ? Hemospermia Active 10/01/2021 ? Psoriasis Active 10/01/2021 ? Multiple Skin Tags Active 10/01/2021 ? Alopecia Areata Active 10/01/2021 ? Urticaria Active 10/01/2021 ? Disorder of Skin Pigmentation Active 10/01/2021 ? Osteoarthritis of Knee Active 10/01/2021 ? Shoulder Joint Pain Active 10/01/2021 ? Inflammation of Sacroiliac Joint Active 10/01/2021 ? Lumbago with Sciatica Active 10/01/2021 ? Contracture of Palmar Fascia Active 10/01/2021 ? Daytime Somnolence Active 10/01/2021 ? Vertigo Active 10/01/2021 ? Malaise Active 10/01/2021 ? Fatigue Active 10/01/2021 ? Palpitations Active 10/01/2021 ? Paroxysmal Nocturnal Dyspnea Active 10/01/2021 ? Delay When Starting to Pass Urine Active 10/01/2021 ? Hyperglycemia Active 10/01/2021 ? Elevated Blood-pressure Reading without Active 10/02/19 ? Diagnosis of Hypertension Hepatitis C Carrier Active 10/01/2021 ? Family History of Pulmonary Embolism Active 10/01/2021 ? Bilateral Carpal Tunnel Syndrome Active 10/01/2021 ? Pain in Left Thumb Active 10/01/2021 ? Solitary Sacroiliitis Active 10/02/2021 ? Procedures None recorded. Vaccine List None recorded. Social History Tobacco Smoking Status Former Smoker What is your level of alcohol None consumption? Are you currently employed? N Notes: re tired Do you have any pets? N Are you blind or do you have N Notes: w ears glasses difficulty seeing? What is your code status? 0 Are you deaf or do you have serious N difficulty hearing? Do you have an advanced directive? Y Not es: Advance Directive 01/24/2019 What is your level of caffeine Occasional consumption? Functional Status No Impairment. 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 History of Present Illness Note: <div><strong>Sleep Medicine New Patient Consult</strong></div><div&gt ;
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
</div><div>Past medical history includes pulmonary embolism newly diagnosed 3 months ago(on eliquis), hospitalized at [facility] x 2 days, paroxysmal nocturnal dyspnea, palpitations, obesity, insomnia, elevated blood pressure, daytime somnolence, anxiety, IBS, hx of substance abuse currently on methadone through [facility] History hep C with successful treatment, chronic back pain, OA, lumbar DDD, GERD.</div><div>
</div><div> Lives alone, [place] location in [place]. minimal social supports even though brother lives close by. patient states he was referred 1.5 yrs ago but did not pursue referral to due lack of electricty, and concerned he would not be able to use cpap if needed. He has solar power at place of dwelling. He limitsusage to TV and fan at night.</div><div>
</div><div>hx of IVDU, tx methadone 93 mg through [facility] for the past year. No longer participating in counseling/therapy outside of [facility]. </div><div>
</div><div><strong>PREVIOUS SLEEP EVALUATION: </strong>{{Reviewed in detail and summarized as follows: Records not available, requested. Records not available. None. None #}}</div><div>
</div><div><strong>CHIEF COMPLAINT/HISTORY OF PRESENT ILLNESS: </strong> </div><div><br&gt ;</div><div>Patients reports biggest problem with sleep is snoring, dry throat, choking,sometimes wakes up with joint pain, difficulty with memory (remembering apts. etc)</div><div>
</div><div>
</div><div><strong>SLEEP SCHEDULE:&l t;/strong> Bedtime {{ 11#}} {{am pm#}}, Sleep onset latency {{less than 30 30 to 60 greater than 60 variable 15-45 mins#}} minutes,enjoys reading prior to bedtime. Awakenings {{0-2 variable 2-3#}} times per night, Able to fall back asleep within {{up to 30 minutes up to few hours variable few minutes #}}, Wake time {{ 9-10:00#}} {{pm am#}}. Naps {{Rare Occasionally Nearly Everyday* Everyday}}.usually when watching TV. Usually 30 mins. feels refreshed</div><div>
</div><div><strong>SLEEP ENVIRONMENT:</strong> {{Pets wake patient up. Children wake patient up. Noise from outside room wake patient up.* Light wakes patient up. No environmental disruptions identified.}} sleeps with fan on for white noise</div><div>
</div><div><strong>SLEEP QUALITY:</strong> {{Fair Very good Adequate Very poor Poor #}}</div><div>
</div><div><strong>DAYTIME/NEUROCOGNITIVE FUNCTION:</strong> {{Sleepy Alert Low energy,sleepy#}}. {{Problems with memory Problems with memory, concentration and mood* No problems with memory, concentration, mood}}.</div><div>
</div><div><strong>SLEEP RELATED THOUGHTS/BEHAVIORS:</strong> {{Deny insomnia related thought patterns or behaviors, except [place] active mind. Stressful thoughts interfering with sleep.* Tendency to clock watch. Worry about getting good night sleep.}}. {{[place] active mind. Stressful thoughts interfering with sleep. Tendency to clock watch. Worry about getting good night sleep.*}} {{Stressful thoughts interfering with sleep. Tendency to clock watch. Worry about getting good night sleep. .#}} {{Tendency to clock watch. Worry about getting good night sleep. .#}} {{Worry about getting good night sleep. .#}}</div><div>
</div><div><strong>SLEEP BREATHING:</strong> {{Snoring. Witnessed apneas. Loud Snoring.#}} {{Witnessed apneas. Waking up gasping for air. Waking up gasping for air. when increased phlegm#}} {{Witnessed apneas. Waking up gasping for air. choking#}} {{Mouth breathing.* Chronic nasal congestion.}} {{Chronic nasal c ongestion.*}}</div><div>
</div><div><strong>LEG SYMPTOMS:</strong> {{Legs move before sleep and/or during sleep. Deny RLS related symptoms. #}} {{Leg movements are worse in evenings. chronic leg pain#}} {{Relieved by movement. .#}} {{Relieved by counterpressure. .#}} {{Leg cramps especially in evening. Leg cramps especially in evening. On occasion#}} {{Toss and turn at night. Sheets are messy after sleep. .#}} {{Sheets are messy after sleep.*}} </div><div>
</div><div>
</div><div><strong>MOVEMENT SYMPTOMS</strong>{{Sleeptalk. Sleepwalk: No sleepwalking #}}.</div><div>
& lt;/div><div><strong>DREAM SYMPTOMS:</strong> {{Dream enactment behavior: Deny d ream enacting behavior #}}. {{See dreams in room when waking up or falling asleep: Deny hypnogogic or hypnopompic hallucinations #}}. {{Disturbing nightmares Recurring nightmares No disturbing dreams #} }</div><div>
</div><div><strong>WEAKNESS SYMPTOMS:</strong> {{Muscles suddenly become weak triggered by emotion Muscles may feel weak but no emotional triggers known Deny cataplexy related symptoms #}} {{Experienced inability to move upon waking up in remote past Experiences inability to move upon waking up on regular basis Deny sleep paralysis #}}.</div ><div>
</div><div><strong>DRIVING:</strong> {{Experienced drowsy driving in past related to sleep deprivation Intermittent drowsy driving episodes Regular drowsy driving episodes Deny drowsy driving #}}. {{Follows drowsy driving precautions. Aware of drowsy driving precautions and plans to follow them. .#}}</div><div>
</div><div><strong>OTHER PERTINENT SYMPTOMS: </strong> </div><div>
</div><div><strong>PRODUCT/SUBSTANCE USE:</strong>{{No smoking* No smoking, quit in remote past No smoking quit recently Current Smoker}}. {{Contemplating quitting Ready to quit Not interested in quitting .#}}. {{No alcohol use 1-2 alcohol drinks daily 3+ alcohol drinks daily Variable alcohol use Rare alcohol use#}}. {{Recreational MJ use Medical MJ use Rare MJ use Cocaine Heroin/Non-prescribed Opiate No regular illicit drug use#}}.</div><div>
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
</div><div>
</div> Review of Systems: ROS as noted in the HPI Review of Systems ? Notes: A 14-point <strong>REVIEW OF SYSTEM</strong> was obtained and reviewed, includes CONSTITUTIONAL, EYE S, ALLERGY, NEUROLOGIC, ENDOCRINE, GI, CARDIOVASCULAR, SKIN, MSK, E NT, , RESPIRATORY, HEMATOLOGIC, PSYCH systems. Pertinent symptoms are discu ssed in history, otherwise negative. Physical Exam ? Notes: <div>GENERAL: {{chronically ill appearing well appearing#}}, appearing {{older than younger than stated#}} age, no acute distress, {{normal tall lean obese#}} build</div><div>HEENT: atraumatic skull, moist mucous membranes, Mallampati 4, macroglossia</div><div>HEART: {{irregular regular#}} rate and rhythm, {{no#}} significant murmurs appreciated</div><div>LUNGS: {{decreased effort clear to auscultation bilaterally#}}, no wheezing< /div><div>EXTREMITIES: no skin discoloration, {{minimal 1+ 2+ 3+ no#}} low er extremity edema, normal muscle tone</div><div>PSYCHIATRIC: well groomed, fluent speech, good insight, linear thought process, good eye co ntact, {{flat balanced#}} affect</div><div>NEUROLOGIC: alert, oriented, symmetric facial expression</div><div>
</d iv><div>
</div><div><strong>Clinical Data Reviewed:</strong></div><div >
</div><div>1. {{Modified Pediatric Prospect Sleepiness Scale Prospect Sle epiness Scale*}}: _10_ out of {{21 due to not driving 24#}}.</div><div>
</div><div>2. [place] Questionnaire positive for {{0 1 2 3#}} out of 3 Catego cristina.</div><div>
</div><div>3. {{Sleep study results as above. Sleep stud y results not available, requested Unable to obtain sleep study reports N o sleep study reports#}}</div><div>
</d iv><div>4. {{Lab results as outlined. Labs pending. No pertinent labs a vailable. #}}</div><div>
</div><div>5. {{Sleep log reviewed, consistent wit h history.* Sleep log reviewed.}}</div>
--- OUTSIDE RECORDS SUMMARY | 2021-10-27 01:48 | XMS_ITS ---
:1955 Author Care Team Providers Name Role Phone MARIE QUINN Primary Care Provider [phone] Allergies Code Code System Name Reaction Severity Status Onset 319041 RxNorm Bactrim ? ? Active ? 2670 RxNorm Codeine ? ? Active ? Garamycin ? ? Active ? 5640 RxNorm Ibuprofen ? ? Active ? Medications Name Status Start Date Stop Date ? ? betamethasone dipropionate 0.05 % lotion Active ? Not available APPLY A FEW DROPS TO THE AFFECTED AREA( S) BY TOPICAL ROUTE 2 TIMES PER DAY IN THE MORNING AND AT BEDTIME ; RUB IN GENTLY AND COMPLETELY Eliquis 5 mg tablet Active ? Not availabl e Take 1 tablet twice a day by oral route. lorazepam 1 mg tablet Active ? Not availa ble Take 1 tablet twice a day by oral route as needed. methadone 10 mg/5 mL oral solution Active ? Not available Take 97 mg every day by oral route. Narcan 4 mg/actuation nasal spray Active ? Not available Take by nasal route as needed. nystatin 016424 unit/g topical cream Active ? Not available APPLY TO THE AFFECTED AREA(S) BY TOPICAL ROUTE 2 TIMES PER DAY Problems Name Status Onset Date Source ? [...] Sacroiliitis Active 10/02/2021 ? Procedures None recorded. Results Lab Results None recorded. 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 Social History Tobacco Smoking Status Former Smoker Vaccine List None recorded. Plan of Care Patient Instructions We discussed [...] ? Referral None recorded. ? ? Procedures None recorded. ? ? Surgeries None recorded. ? ? Imaging None recorded. ? ? Vitals Height Weight BMI Blood Pressure 177.8 cm 109.04 kg 34.5 kg/m2 169/80 mm[Hg]
[2021-10-29 10:53] LABS: Protein C, Functional 119 % (71-199); Protein S, Functional 127 % (73-156)
[2021-10-29 11:03] LABS: Antithrombin Activity, Plasma 93 % (80 - 130)
[2021-10-29 14:54] LABS: Phospholipid Ab, IgG <9.4 GPL; Phospholipid Ab, IgM <9.4 MPL
[2021-10-29 18:03] LABS: Beta 2 GP1 Ab IgG <9.4 U/mL; Beta 2 GP1 Ab IgM <9.4 U/mL
== END 2021-10-27 01:47 | disposition home or self-care (01) ==
LOC: LBO 01:47
PROVIDERS: PCP Nurse Practitioner Family; Visit Provider Internal Medicine Hematology & Oncology
DX: I26.99 Other pulmonary embolism without acute cor pulmonale (principal)
CPT/HCPCS: 36415; 85300; 85306; 85307; 86146; 86147; 85303

== ENCOUNTER 2022-08-06 14:18 | Outpatient (REF) | payer MEDICARE, MEDICAID, SELFPAY ==
[2022-08-06 19:14] LABS: Abs Immature Grans 0.01 10^3/uL (0.0-0.06); Absolute Basophil Count 0.04 10^3/uL (0.0-0.2); Absolute Eosinophil Count 0.51 10^3/uL (0.0-0.7); Absolute Lymphocyte Count 1.16 10^3/uL (1.2-3.4); Absolute Monocyte Count 0.52 10^3/uL (0.1-0.8); Absolute Neutrophil Count 3.86 10^3/uL (1.2-6.7); Basophils % 0.7; Eosinophils % 8.4; HGB 14.8 g/dL (13.5-17.5); Immature Grans % 0.2; MCH 28.8 pg (27.0-33.0); MCHC 33.6 % (32.0-36.0); MCV 86 fL (80-95); MPV 10.8 fL (8.0-11.0); Monocytes % 8.5; Neutrophils % 63.2; Platelet Count 199 10^3/uL (130-400); RBC 5.14 10^6/uL (4.36-5.78); RDW 12.6 % (11.8-14.1); RDW-SD 39.1 fL
[2022-08-06 19:35] LABS: ALT 23 U/L (16-63); AST 22 U/L (15-37); Alkaline Phosphatase 95 U/L (46-116); Anion Gap 6.4 mmol/L (3-11); BUN 19 mg/dL (7-18); Bilirubin, Total 0.5 mg/dL (0.2-1.0); CO2 29.6 mmol/L (21.0-32.0); Calcium 8.7 mg/dL (8.5-10.1); Chloride 105 mmol/L (98-107); Estimated GFR 83.52 (mL/min/1.73m2); Glucose 99 mg/dL (74-106); Potassium 3.8 mmol/L (3.5-5.1); Sodium 141 mmol/L (136-145); TSH 1.18 uIU/mL (0.36-3.74)
[2022-08-07 20:18] LABS: PSA, Screening 0.6 ng/mL (<=4.5)
== END 2022-08-06 14:19 | disposition home or self-care (01) ==
LOC: NCHCN 14:18
PROVIDERS: PCP Physician Assistant; Visit Provider Physician Assistant
DX: I26.99 Other pulmonary embolism without acute cor pulmonale (principal); L63.9 Alopecia areata, unspecified; R36.1 Hematospermia
CPT/HCPCS: 80053; 84153; 84443; 85025

== ENCOUNTER 2022-08-28 14:50 | Outpatient (REF) | payer MEDICARE, MEDICAID, SELFPAY ==
[2022-09-01 12:58] LABS: Chlamydia Result Negative (Negative); GC Result Negative (Negative)
== END 2022-08-28 14:51 | disposition home or self-care (01) ==
LOC: NCHCN 14:50
PROVIDERS: PCP Physician Assistant; Visit Provider Internal Medicine
DX: N53.14 Retrograde ejaculation (principal)
CPT/HCPCS: 87491; 87591

== ENCOUNTER → 2023-03-02 13:18 | Outpatient (BNVA) | payer MEDICARE, MEDICAID, SELFPAY | PROVIDERS: PCP Nurse Practitioner Family; Referring Provider Nurse Practitioner Family; Visit Provider Surgery | DX: R09.89 Other specified symptoms and signs involving the circulatory and respiratory systems (principal); K21.9 Gastro-esophageal reflux disease without esophagitis | CPT/HCPCS: 99202; 99214 ==

== ENCOUNTER 2023-03-24 07:24 | Day surgery (SDC) | payer MEDICARE, MEDICAID, SELFPAY ==
--- NOTE | 2023-03-24 06:39 | PGE_ITS ---
Date of Service Date of service: 03/24/23 Time of Service: 08:32 Assessment and Plan Assessment and plan (1) GERD (gastroesophageal reflux disease): Assessment and plan: Jasmeet is a pleasant 67-year-old gentleman with anxiety who comes in with globus sensation for 4 months.? We discussed the pathophysiology of reflux and that the globus sensation could be due to reflux.? The Prilosec does not seem to be working at this time.? After our conversation he seemed to have a good understanding of both the procedure and its possible complications and wished to proceed.? He needs to check his calendar to see when would be a good time to have this done.? Risks, benefits and complications have been reviewed. Complications include but are not limited to bleeding, pain, perforation, sore throat, aspiration, and adverse reaction to the medications.? Questions were entertained and answered to their satisfaction and they wished to proceed. No guarantees were given or implied. Subjective Subjective Interval history since last seen: Jasmeet was seen in [facility]. He has no new symptoms. Still complains of a sore throat, dry mouth and globus sensation. He has had no N/V or abdominal pain. Exam Const General: comfortable and anxious Nutritional Appearance: average body habitus Orientation: alert and oriented x3 HENMT Head: normocephalic and atraumatic Resp Effort & Inspection: normal respiratory effort Time Spent with Patient Time Spent with Patient: <25 minutes Time was spent: counseling the patient
--- NOTE | 2023-03-24 06:40 | W.PM.ENDDOP ---
Date of service: 03/24/23 Time of Service: 09:16 Endoscopy Report DATE OF PROCEDURE: 03/24/23 PRE-OP DIAGNOSIS: GERD POST-OP DIAGNOSIS: other (mild gastritis, sputum down the esophagus and fluid.) PROCEDURE: EGD with biopsies SURGEON: Afia Ho ANESTHESIA TYPE: General:No Airway COMPLICATIONS: None INDICATIONS: Jasmeet is a pleasant 67-year-old gentleman with anxiety who comes in with globus sensation for 4 months.? We discussed the pathophysiology of reflux and that the globus sensation could be due to reflux.? The PriNetMoviesc does not seem to be working at this time.? It was hard to follow the patient's train of thought as he is bouncing around from 1 problem to another.? He does state that because he has not been able to use his CPAP he has not been sleeping well and so he feels like his mind is more jumbled because of that.? I think he needs to go back and talk to his primary care physician regarding a different type of CPAP mask.? Patient should certainly not be driving if he is not sleeping at night.? I did discuss this with the patient.? He does state that sometimes if he has to get some more in the morning he will have to stop several times to rest because he is falling asleep.? I did describe the procedure in detail as well as the possible risks and complications.? After conversation he seemed to have a good understanding of both the procedure and its possible complications and wished to proceed.? He needs to check his calendar to see when would be a good time to have this done.? Risks, benefits and complications have been reviewed. Complications include but are not limited to bleeding, pain, perforation, sore throat, aspiration, and adverse reaction to the medications.? Questions were entertained and answered to their satisfaction and they wished to proceed. No guarantees were given or implied. FINDINGS: mild inflammation of the stomach. Esophagus and GE junction looked fine. There was a lot of fluid and sputum in the entire esophagus. ? motility issue PROCEDURE DESCRIPTION: After informed consent was obtained the patient was take to the procedure room and placed in a supine position. Monitors were applied and a time out was done. The patients name, date of , procedure type, allergies to medications and metal in their body was reviewed. A bite block was placed and the patient was sedated. Once sedated and comfortable the gastroscope was advanced through the oropharynx which was grossly normal into the esophagus. The proximal and mid-esophagus were normal. In the distal esophagus there was maybe some mild inflammation noted. There was thick sputum in the esophagus. The scope was advanced into the stomach and through the pylorus into the 3rd portion of the duodenum. The duodenum was noted to be normal. The scope was retracted back into the stomach. There was some mild inflammation and a lot of fluid. Biopsies were done to rule out H. pylori. There were no ulcers. The scope was retroflexed. The cardia and fundus were noted to be normal. There was no hiatal hernia noted. The scope was retracted back into the esophagus and biopsies were done of the GE junction to rule out Gardner's. The Z line was regular. The GE junction was at 35 cm. The scope was removed and the patient was woken up and taken back to [facility] in stable condition. Follow up: I will order a pH study and manometry
--- NOTE | 2023-03-24 06:41 | W.PM.DSUDISC ---
Date of service: 03/24/23 Time of Service: 09:59 Discharge Plan Disposition Patient Disposition: Home Condition: Stable Discharge Details Reason For Visit: GERD Attending Provider: Afia Ho Primary Care Provider: Jonathan Vargas Home Meds and New Rx's Prescriptions: Continued hydrocortisone 0.5 % cream 1 applic TP BID fluocinonide 0.05 % Solution 1 applic TOPICAL DIRECTED naloxone [Narcan] 4 mg/actuation [place],Non-Aerosol 4 mg INTRANASAL PRN PRN hydroxyzine HCl 25 mg tablet 25 mg PO BID PRN (Reason: itching) Qty: 180 0RF sildenafil 25 mg tablet 25 mg PO DAILY PRN Rx Instructions: administer 30 minutes to 4 hours before activity Eliquis DVT-PE Treat 30D Start 5 mg (74 tabs) tablets,dose pack 5 mg PO ONCE Qty: 74 0RF Discharge Instructions Additional Instructions: Findings: mild inflammation at the GE junction Question an issues with the function of the esophagus Other: I [place] [facility] [place] like we discussed Referal also to [facility] therapy and Ear, nose and throat Follow up: I will call you with results of your tests Please call if you develop: fevers >101.5 Nausea or Vomiting Abdominal pain that is not transient Rectal bleeding that is more then a tbsp A hard abdomen and inability to pass gas DAY SURGERY UNIT POST ENDOSCOPY INSTRUCTIONS Instructions for everyone who is given Anesthesia: For your safety, please do the following for the next 24 Hours: a. Do not drive or operate dangerous equipment b. Do not drink alcohol beverages or use any recreational drugs for the first 24 hours or while taking pain medications. The medications in your body may have a reaction that can be dangerous. c. Do not make any important decisions or sign any important papers 1. Generally there are no restrictions on your activity after a day or so has gone by, but you may feel a bit fatigued for a few days. 2. After you arrive home you may have a light meal and return to a normal diet as you can tolerate it without feeling sick to your stomach. 3. After surgery, you may feel pain or discomfort. This should be only transient, but if it persists please contact your doctor. 4. If there are any questions regarding the findings of your procedure, please feel free to contact your doctor. 6. If you are unable to contact your doctor with a problem, contact the hospital at [phone]. 5. Continue all your regular medications unless directed otherwise. I understand the above instructions and have no questions. Signature of Patient or Responsible Adult Escort Date/Time Name of Responsible Adult Escort Signature of Nurse Date/Time Activity:: Activity as Tolerated Diet:: As Tolerated Discharge Orders Discharge Orders: Discharge Order (Routine); Ordered 03/24/23 Ordered By: Afia Ho DS: Diagnosis Discharge Diagnosis (1) GERD (gastroesophageal reflux disease): Asessment and Plan: Patient is seen and examined after their endoscopy. Patient has minimal sore throat. They have been able to tolerate liquids. They do not have any Nausea or Vomiting. They are not having any chest pain or shortness of breath. They have been able to pass gas and are not having any abdominal pain or distention. they have not vomited any blood. The vital signs have been stable-see nursing notes. We discussed findings on their endoscopy We reviewed the importance of lifestyle modifications- see diet recommendations We reviewed any new medications that the patient may be prescribed- see medicine reconciliation. Patient will either be sent a letter with the biopsy results or follow up in the office- see discharge instructions Patient was given explicit instructions for emergency follow up post endoscopy- see discharge instructions Patient verbalized understanding and was discharged in stable and satisfactory condition. See nursing notes.
--- NOTE | 2023-03-24 07:27 | ANES.PREOP_ITS ---
General Info Date of Service Date Performed: 03/24/23 Height: 5 ft 9 in Weight: 102.058 kg Body Mass Index (BMI): 33.2 Surgical Procedure: Operation Date: 03/24/23 09:05 Proposed Procedure Side Surgeon p Gastroscopy Afia Ho MD Meds Allergies and Home Medications Allergies Allergy/AdvReac Type Severity Reaction Status Date / Time sulfamethoxazole Allergy Verified 03/24/23 07:45 [From Bactrim] trimethoprim [From Bactrim] Allergy Verified 03/24/23 07:45 codeine AdvReac Intermediate GI UPSET Verified 03/24/23 07:45 cephalexin AdvReac Mild GI upset Verified 03/24/23 07:45 ibuprofen AdvReac GI UPSET Verified 03/24/23 07:45 GARAMYCIN EYE DROPS Allergy Other (See Uncoded 03/24/23 07:45 Comment) Home Medication Medication Instructions Recorded hydrocortisone 0.5 % topical cream 1 applic topical BID 11/16/18 fluocinonide 0.05 % topical 1 applic topical DIRECTED 09/18/20 solution naloxone 4 mg/actuation nasal 4 mg intranasal PRN PRN 09/18/20 spray (Narcan) apixaban 5 mg (74 tabs) tablets in 5 mg PO ONCE #74 dose pk 05/10/21 a dose pack ([employer] DVT-PE Treat 30D Start) sildenafil 25 mg tablet 25 mg PO DAILY PRN 12/07/22 hydroxyzine HCl 25 mg tablet 25 mg PO BID PRN itching #180 tabs 02/15/23 Current Visit Medications: Current Medications Generic Name Dose Route Start Last Admin Trade Name Freq PRN Reason Stop Dose Admin Ringer's Solution 1,000 mls @ 80 mls/hr 03/24/23 06:00 IV 04/22/23 23:59 [facility] IV Miscellaneous Supplies 1 each 03/24/23 06:00 Iv Access IV 04/22/23 23:59 DIRECTED MEERA Ondansetron HCl 4 mg 03/24/23 06:42 Ondansetron 4 Mg/2 Ml Vial IVP 04/23/23 06:41 Q4H PRN PRN Nausea / Vomiting Sodium Chloride 0 ml 03/24/23 06:00 Normal Saline Flush 10 Ml Syr IV 04/22/23 23:59 PRN PRN Sodium Chloride 0 ml 03/24/23 06:00 Normal Saline 10 Ml Vial IJ 04/22/23 23:59 DIRECTED PRN Sterile Water 0 ml 03/24/23 06:00 Water,Injection,Sterile 10 Ml Vial IJ 04/22/23 23:59 DIRECTED PRN PFSH Active Problems Active Problems: Problem Status Onset Code HTN (hypertension) I10 Chronic back pain M54.9, G89.29 Anxiety F41.9 Sacroiliac joint dysfunction of right side M53.3 Globus sensation R09.89 Tinnitus H93.19 Hearing loss, bilateral H91.93 Vitamin D deficiency E55.9 Hives L50.9 Bilateral pulmonary embolism I26.99 Elevated troponin I level R77.8 Opioid use disorder, moderate, on maintenance therapy F11.20 DVT prophylaxis Z29.9 History of excessive cerumen Z78.9 Snoring R06.83 Sleep apnea G47.30 Lower back pain M54.50 Medical History Medical History Alopecia areata Dupuytrens contracture Elevated blood pressure reading without diagnosis of hypertension Erectile dysfunction GERD (gastroesophageal reflux disease) Hematospermia History of hepatitis C s/p treatment History of torn meniscus of left knee Insomnia related to another mental disorder Irritable bowel syndrome IV drug abuse 1980s Lumbago with sciatica, left side Mild cognitive impairment Osteoarthritis Overweight Pain, joint, shoulder, left Palpitations Pigmented nevus Postinflammatory hyperpigmentation Psoriasis of scalp Sacroiliitis Severe sleep apnea per pt. 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 In process of weaning off suboxone 2018, previously on methadone. Urinary hesitancy Vertigo Medical History Comments:: Severe JARED Surgical History Surgical History H/O medial meniscus repair of left knee Hx of colonoscopy (~08/17/11) Tobacco Smoking/Tobacco Use Status: Former Tobacco Use Smokeless tobacco user: chewing tobacco Passive smoking exposure: Yes Second hand exposure: Yes Alcohol Alcohol Intake: never Details: Pt reports he hates alcohol and doesn't drink Substance Use Substance use: Rarely Substance use type: marijuana, crack/cocaine, heroin, IV drugs and other Details: former heroin use, on methadone for the past 6 months Vital Signs and Lab Results Vital Signs Comment Vital Signs Comment:: Temp Pulse Resp BP Pulse Ox 36.5 C 82 20 151/93 H 98 03/24/23 07:30 03/24/23 07:30 03/24/23 07:30 03/24/23 07:30 03/24/23 07:30 Lab Results Blood Type / Crossmatch: No Data to Display Complete Blood Count: No Data to Display Complete Metabolic Panel: No Data to Display Liver Function Panel: No Data to Display Coagulation Panel: No Data to Display Cardiac Panel: No Data to Display Arterial Blood Gas: No Data to Display Venous Blood Gas: No Data to Display Pancreas Panel: No Data to Display Thyroid Panel: No Data to Display Infectious Disease: No Data to Display Blood Cultures: No Data to Display Toxicology Panel: No Data to Display Imaging and Studies Imaging and Studies Study information below may be from another EMR and interpreted by another provider. Please see original notes in EMR for more complete details. EKG Summary: EKG PATIENT NAME: Jasmeet Cardona #: [id number] ORDERING PROVIDER: Mono Kang #: [id number] PRIMARY CARE PROVIDER:IVANNA RESTREPO NP DATE/TIME OF SERVICE: 05/13/21746 : 1955PERFORMING LOCATION: ER APPROVED REPORT Exam: Resting ECG Reason for Exam: chest pain Patient Location: E HR:107 bpm ECG Measurements Heart Rate 107 AXIS NJ 202 P 62 QRSd 93 QRS 27 QT 357 T48 QTc 475 Conclusion Sinus tachycardia...rate> 99 Probable left atrial enlargement...P >50mS, <-0.10mV V1. Sinus. No STEMI. I have reviewed and interpreted ECG and agree with software generated interpretation. <Electronically signed by MONO KANG DO in OV> E-Sign Date: 05/13/21 E-Sign Time: 908 ADDENDUM APPROVED REPORT Exam: Resting ECG Reason for Exam: chest pain Patient Location: E HR:107 bpm ECG Measurements Heart Rate 107 AXIS NJ 202 P 62 QRSd 93 QRS 27 QT 357 T48 QTc 475 Conclusion Sinus tachycardia...rate> 99 Probable left atrial enlargement...P >50mS, <-0.10mV V1. Sinus. No STEMI. I have reviewed and interpreted ECG and agree with software generated int erpretation. I have reviewed and I agree with the emergency room physician's ECG interpretation. Electronically signed by: <Electronically signed by Nannette Ko M.D. in OV> 05/13/21 09 Cosigned by: Echocardiogram Summary: Patient Name: Jasmeet Cardona #: [id number]: DI Ordering Provider: Naif Panchal M.D. : [facility] Primary Care Provider: Ivanna Restrepo NPDate of Exam: 05/20/21Sex: M Admission Date: 05/20/21 : 1955 Age: 65 APPROVED REPORT EXAM: Comprehensive 2D, Doppler, and color-flow Echocardiogram Patient Location: Out-Patient Plastic Surgery Technician: Calli Palacio RDCS (AE) Indications: Pulmonary emobolism Other Information Study Quality: Adequate Conclusion Normal left ventricular wall thickness and chamber size. Estimated ejection fraction is 60%. Wall motion is normal Normal right ventricular size and systolic function Both atria are normal in size There is no structural or hemodynamically significant valvular disease Normal estimated right ventricular systolic pressure, 24 mmHg Wall motion Left Ventricle The left ventricle is normal size. The left ventricular systolic function is normal. The left ventricular ejection fraction is within the normal range. There is normal left ventricular wall thickness. There is normal LV segmental wall motion. There is no ventricular septal defect visualized. LVEF is 60%. Right Ventricle The right ventricle is normal size. The right ventricular systolic function is normal. The RVSP is 24.4 mmHg. Atria The left atrium size is normal. The right atrium size is normal. The interatrial septum is intact with no evidence for an atrial septal defect. Aortic Valve The aortic valve is normal in structure. Aortic valve is trileaflet. There is no aortic valvular stenosis. No aortic regurgitation is present. Mitral Valve The mitral valve is normal in structure. No evidence of mitral valve stenosis. Trace mitral regurgitation. Tricuspid Valve The tricuspid valve is normal in structure. There is no tricuspid valve stenosis. Trace tricuspid regurgitation. Pulmonic Valve The pulmonary valve is normal in structure. There is no pulmonic valvular stenosis. There is no pulmonic valvular regurgitation. Great Vessels The aortic root is normal in size. The ascending aorta is normal in size. Aortic arch is normal in caliber. IVC is normal in size and collapses >50% with inspiration. Pericardium There is no pericardial effusion. 2D Dimensions IVSD d PLAX 0.92 cm M: 0.6-1.2LV Vol A2C d MOD 86.8 mL LVPW d PLAX 0.92 cm M: 0.6 - 1.2LV Vol A4C d MOD 91.8 mL LVID d PLAX 4.53 cm M: 4.2 - 5.8LA vol/ BSA A2C s A-L23.6 mL/m2 LVDs 3.05 cm M: 2.5 - 4.0LA vol/ BSA A4C s A-L15.1 mL/m2 Ao Root d 2.96 cm M: 3.1 - 3.7LA Vol/ BSA Biplane s A-L 19.1 mL/m2 RA Area A4C9.56 cm2LA Area A4C s MOD 13.97 cm2 RA Vol/ BSA A4C s A-L 8.2 mL/m2LA Area A2C s MOD 17.30 cm2 Ao Asc Diam d 3.35 cm M: 2.6 - 3.4LV EF A4C MOD 60.4 % LV EF Teichholz 60.7 %LV EF A2C MOD 61.2 % LVEF (Tom's)61.45 % M: 52 - 72LV EF Biplane MOD 61.4 % LV Yrxcjv66.32 mL M: 62 - 204ER41.99 mL LV Volume Index30.28 mL/m2 M: 34 - 74SV Index25.51 mL/m2 LV Vol Biplane MOD 91.1 mL FS32.30 % M-Mode TAPSE 2.60 cm (M/F) >1.7 LV Diastology MV E' medial0.094 (>0.07 m/s)E/A Ratio 0.9 LV E/e MED7.20 (<14)MV E Vmax 0.68 (0.4-1.3 m/s) MV E' lateral0.118 (>0.1 m/s)MV A Vmax 0.75 (0.4-1.3 m/s) LV E/e LAT5.70 (<14)MV E/A Ratio 0.90 MV E/E' medial 7.24 MV E/E' lateral5.74 Aortic Valve LVOT Area3.62 cm2AoV Area Vmax2.75 cm2 LVOT Vmax 0.83 m/sAoV Area/ BSA (Vmax)1.26 cm2/m2 LVOT Mean Jerry.0.55 m/sAVA Mean Jerry.2.64 cm2 LVOT Peak Grad 2.7 mmHgAVA Mean Jerry. Index1.21 cm2/m2 LVOT Mean Grad 1.4 mmHg LVOT VTI0.169 m LVOT Diam s 2.10 cm AoV Vmax1.09 m/s Velocity Ratio 0.76 AoV Mean Jerry.0.76 m/s AoV Peak Grad4.7 mmHg LVOT SV 61.02 mL AoV Mean Grad2.6 mmHg AoV VTI0.220 m AoV Area VTI2.77 cm2 AoV Area/ BSA (VTI)1.26 cm/m2 Mitral Valve MV DT 204 (160-240 msec) MV PHT59 msec MV Area PHT 3.71 cm2 MV VTI 0.237 m MV Area VTI 2.58 (4.0-6.0 cm2) Pulmonary Valve PV Vmax 0.91 (0.5-1.5 m/s)RVOT Peak Gr.1.07 mmHg PV Peak Grad 3.3 mmHgRVOT Mean Gr.0.60 mmHg PV Mean Grad 1.8 mmHgRVOT VTI0.112 m PV VTI 0.186 mRVOT Vmax 0.52 m/s Tricuspid Valve TR Peak Grad 21.4 mmHgTR Vmax 2.31 m/s RA Pressure 3.00 mmHg RVSP (TR) 24.4 mmHg Ordered By: Naif Panchal M.D. CC: Dictated By: Nannette Ko M.D. 05/20/21 1549 <Electronically signed by Nanentte Ko M.D. in [place]> 05/20/21 7160 Transcribed By: Nannette Ko MD This is privileged, confidential information intended only for the provider named. Any use or distribution by any person other than this provider is strictly prohibited. If you receive this report in error, please notify us immediately at [phone] and return the original report to us at the address above. Thank-you. Anesthesia Assessment and Plan Anesthesia History Personal History: Other Family History: No Family History of Anesthesia Complications Exercise Tolerance Exercise Tolerance: Metabolic Equivalents>4 Pertinent Negatives Pertinent Negatives: No History of CVA/TIA Cardiac & Pulmonary Exam Cardiac Exam: Normal S1/S2 Heart Sounds Pulmonary Exam: Clear Bilateral Breath Sounds Implantable Cardiac Device Does patient have a Pacemaker or an ICD?: No Airway Exam Known Difficult Airway: No Mallampati Class: 2 Mouth Opening: Normal (> 3cm) Thyromental Distance: Greater than 3 cm Neck Range of Motion: Full ROM Neck Circumference: Normal Teeth Condition: Normal Dentition ASA Classification ASA Score: ASA 3 Emergency Case?: No NPO Status NPO Status: NPO Clears >2 hours, Solids >8 hours Anesthesia Plan Resuscitation Status: Full Code Anesthesia Technique: General Anesthesia Airway Planned: Natural Airway Monitors Used: Standard Monitors
[2023-03-24 07:30] VITALS: BP 151/93; PULSE 82; RESP 20; TEMP 36.5; O2SAT 98
[2023-03-24] MEDS: Lactated Ringers 1,000 ML 80 ML IV (07:59)
[2023-03-24 08:51] VITALS: BMI 33.2
--- NOTE | 2023-03-24 09:03 | STOM_PTH ---
PATIENT: Jasmeet Cardona LOC: [facility] U#:[id number] AGE/SX: 67/M ROOM: RE03/24/[address]: Afia Ho MD : 1955 BED: DIS: 03/24/2023 SPEC #: [id number] RECD: 03/24/23 12:26 STATUS: [facility]HANA RE #: [id number] OREN: 03/24/23 09:[address]: Afia Ho DEPT: Surgical Specimen RECD BY: Soheila Mckeon ENTERED: 03/24/23 12:27 SP TYPE: STOMACH OTHR DR: Jonathan Whatley, OLU Tissues: 1 - STOMACH BIOPSY 2 - ESOPHAGUS BIOPSY Procedures: GROSS AND MICRO LEVEL 4 Comments: [id number]
[2023-03-24 09:20] VITALS: BP 118/79; PULSE 85; RESP 16; TEMP 36.2; O2SAT 97
[2023-03-24 09:50] VITALS: BP 129/82; PULSE 66; RESP 18; TEMP 36.3; O2SAT 98
--- NOTE | 2023-03-24 10:39 | W.ANESPOSTOP ---
Postoperative Evaluation Date, Time and Location Date Performed: 03/24/23 Time Performed: 10:39 Patient Location: Day Surgery Unit Vital Signs Most Recent Imported Vital Signs: Most Recent Vital Signs Temp Pulse Resp BP Pulse Ox 36.3 C L 66 18 129/82 98 03/24/23 09:50 03/24/23 09:50 03/24/23 09:50 03/24/23 09:50 03/24/23 09:50 Pain Score Most Recent Pain Score: Most Recent Pain Score Pain Level 0 03/24/23 09:50 Assessment Mental Status: Awake (Alert & Oriented to Patient Baseline) Airway and Respiratory Function: Patent airway with normal (patient baseline) respiratory exam Cardiovascular Function: Hemodynamically Stable Hydration Status: Adequately Hydrated Nausea & Vomiting: No Nausea or Vomiting Pain: Pt. Denies Any Pain Peripheral Nerve Block: Patient did not receive a nerve block
== END 2023-03-24 10:19 | disposition home or self-care (01) ==
PROVIDERS: PCP Nurse Practitioner Family; Visit Provider Surgery
PROC: 0DJ68ZZ Inspection of Stomach, Via Natural or Artificial Opening Endoscopic (ICD-10-PCS; CPT 43235; principal; 2023-03-24 09:00)
DX: K21.9 Gastro-esophageal reflux disease without esophagitis (principal); K29.70 Gastritis, unspecified, without bleeding; F41.9 Anxiety disorder, unspecified; F45.8 Other somatoform disorders
CPT/HCPCS: 43239; 88305

== ENCOUNTER 2023-04-13 16:07 | Outpatient (REF) | payer MEDICARE, SELFPAY ==
[2023-04-14 12:01] LABS: Campylobacter PCR Negative (Negative); Salmonella PCR Negative (Negative); Shiga Toxin PCR Negative (Negative); Shigella/Enteroinvasive Ecoli Negative (Negative)
== END 2023-04-13 16:08 | disposition home or self-care (01) ==
LOC: LBN 16:07
PROVIDERS: PCP Nurse Practitioner Family; Visit Provider Nurse Practitioner Family
DX: R19.7 Diarrhea, unspecified (principal)
CPT/HCPCS: 87505

== ENCOUNTER 2023-07-21 13:01 | Outpatient (CLI) | payer MEDICARE, MEDICAID, SELFPAY ==
--- NOTE | 2023-07-21 06:00 | DI.RAD_ITS ---
Exam(s) XR PAIN CLINIC LUMBAR SP 2V EXAM: XR PAIN CLINIC LUMBAR SP 2V CLINICAL HISTORY: Dx: Lumbar Spondylosis TECHNIQUE: 2D and realtime digital imaging was performed. CONTRAST MATERIAL: Refer to procedure report. COMPARISON: No exams were available for comparison FINDINGS: Fluoroscopy was provided for Dr. Anders during the performance of a bilateral lumbar medial branch blo ck. Please refer to the procedure report for complete details. Ka,r=18 mGy IMPRESSION:
[2023-07-21 13:14] VITALS: BP 176/97; PULSE 73; RESP 20; TEMP 36.7; O2SAT 98
--- NOTE | 2023-07-21 13:55 | PDOC.PAIN_ITS ---
Date of service: 07/21/23 Time of Service: 13:56 Pain Managment Procedure Note Procedure Note Procedure Note: PROCEDURE NOTE Bilateral Lumbar Medial Branch Blocks Date of Service: July 21, 2023 Patient: Jasmeet Cardona Provider: Skinny Anders DO, MPH Jasmeet Cardona has been referred to the [facility] for lumbar medial branch blocks. Pre-operative diagnosis: Lumbar Spondylosis without Myelopathy Post-operative diagnosis: Same Pre-procedure pain: VAS= 7/10 COMMENTS: I previously evaluated him in the office. Jasmeet? was interviewed and the medical records were reviewed. There were no medical, pharmacologic, radiographic or other structural contraindications to attempting fluoroscopically guided local anesthetic lumbar medial branch blocks. Risks and potential side effects were discussed. I also discussed the potential benefit(s) of the procedure with Jasmeet, and voiced concerns were addressed. After Jasmeet was completely informed about the procedure, the print ed consent form was signed. A standard time-out procedure was performed. Jasmeet was placed in the prone position on the fluoroscopy table. Automated blood pressure cuff and pulse oximeter were applied. The skin entry points for approaching the anatomic target points of the segmental medial branches of bilateral L3,L4,L5 were identified with fluoroscopy and marked. The skin at the target site area was thoroughly prepared with Chlorhexadine. The skin was then draped. Next, a 25 gauge 3.5 spinal needle was placed under fluoroscopic guidance down on to the target point (the articular pillar) for each respective segmental medial branch. Position was confirmed in A/P and lateral views. Aspiration revealed no blood or clear fluid. Next, 0.25ml of omnipaque 240 was injected at each level. No contrast following a vascular or neural pattern was visualized under continuous fluoroscopy. Next, 0.25 ml of preservative-free 0.5% bupivicaine was injected at each level. There was no unusual discomfort expressed by Jasmeet. The needles were withdrawn without difficulty. (49 mls of Omnipaque was wasted) Jasmeet was observed and was without hemodynamic, neurologic, or allergic reactions.? Fluoroscopic images were digitally archived. Provacative testing using the Modified Johnson's facet loading test- Left side Right Side Directly before the block VAS (0-10) = 7/10 VAS (0-10) = 7/10 Five minutes after the block VAS (0-10) = 3/10 VAS (0-10) = 3/10 Percentage relief obtained with this diagnostic block 80% 80% Any improved physical functioning directly after the blocks? Able to move a lot better Follow up plans and appointments were discussed with Jasmeet. Jasmeet was instructed to keep careful note of how the usual pain was modified by these injections. Specifically, to keep a pain diary for the next 4 hours using a numeric pain scale of 0-10 and report these results. Post procedure instruction was given as documented in the nursing documentation and having met discharge criteria, the patient was [facility]. Based on the medial branches blocked today, if they patient has adequate relief and we are able to proceed to radiofrequency ablation, the treatment should result in the denervation of the bilateral L4-L5 and L5-S1 facet joints. We would expect to denervate a total of 4 facets during the radiofrequency ablation. COMMENTS: No apparent complications. Post-procedure pain: VAS= 3/10 Jasmeet will call back with 0-4 hour post-procedure pain scores. I personally performed the entire procedure. SKINNY ANDERS DO, MPH ABPM&R-subspecialty board certification in Pain Medicine [facility]
[2023-07-21 13:59] VITALS: BP 155/88; PULSE 75; RESP 26; O2SAT 100
[2023-07-21] MEDS: Bupivacaine 0.5% Pres-Free 10 ML VIAL IJ (14:01)
[2023-07-21] MEDS: Omnipaque 240 MG/ML 50 ML BTL IJ (14:01)
[2023-07-21] MEDS: Nerve Block Tray 1 EACH MC (14:01)
== END 2023-07-21 13:02 | disposition home or self-care (01) ==
LOC: PC 13:02
PROVIDERS: PCP Nurse Practitioner Family; Visit Provider Preventive Medicine Occupational Medicine
DX: M54.50 Low back pain, unspecified (principal); M47.816 Spondylosis without myelopathy or radiculopathy, lumbar region
CPT/HCPCS: 00123; 64493; 64494; 72100; J0665; Q9967

== ENCOUNTER 2023-10-27 14:26 | Outpatient (CLI) | payer MEDICARE, MEDICAID, SELFPAY ==
--- NOTE | 2023-10-27 06:00 | DI.RAD_ITS ---
Exam(s) XR PAIN CLINIC SACRIOILIAC 2V EXAM: XR PAIN CLINIC SACRIOILIAC 2V CLINICAL HISTORY: DX: Sacroiliac dysfunction TECHNIQUE: 2D and realtime digital imaging was performed. CONTRAST MATERIAL: Refer to procedure report. COMPARISON: No exams were available for comparison FINDINGS: Fluoroscopy was provided for Dr. Anders during the performance of a right sacroiliac joint injection. Please refer to the procedure report for complete details. Ka,r=6.27 mGy IMPRESSION: RADIATION DOSE DELIVERED: 0.0 0.0 0
[2023-10-27 14:32] VITALS: BP 160/100; PULSE 88; RESP 20; TEMP 36.7; O2SAT 98
--- NOTE | 2023-10-27 15:08 | PDOC.PAIN ---
Date of service: 10/27/23 Time of Service: 15:08 Pain Managment Procedure Note Procedure Note Procedure Note: PROCEDURE NOTE RIGHT INTRA-ARTICULAR SACROILIAC JOINT INJECTION Date of Service: October 27, 2023 Patient: Jasmeet Cardona Provider: Skinny Anders DO, MPH COMMENTS: I previously evaluated the patient in the office and their symptoms in relation to the sacroiliac joint pain have remained the same. Pre-operative diagnosis: Sacroiliac joint dysfunction Post-operative diagnosis: Same Pre-procedure pain: VAS= 3/10 Jasmeet Cardona has been referred to our [facility] for a Right intra-articular Sacroiliac joint injection. Jasmeet was interviewed and the medical record reviewed. There were no medical, pharmacologic, radiographic or other structural contraindications to attempting a fluoroscopically-guided, contrast-enhanced, intra-articular Sacroiliac joint injection. The risks, benefits, and potential side effects of this procedure were reviewed with the patient. Questions and concerns were addressed. After it was clear that Jasmeet was fully informed about the procedure, the printed consent form was signed by the patient and myself. Jasmeet was placed in the prone position on the fluoroscopy table and an automated blood pressure cuff, 3 lead EKG, and pulse oximeter were applied. The skin entry point for approaching the Right sacroiliac joint was identified under the most advantageous fluoroscopic view and marked. Following thorough Chlorhexadine preparation of the skin and draping with sterile surgical drapes, 2 mls of 1% lidocaine was infiltrated into the skin at the entry point and the surrounding subcutaneous tissues. Next, a 3.5 22G spinal needle was placed under fluoroscopic guidance into the Right sacroiliac joint. Intra-articular placement was confirmed by a clear arthrogram resulting from the injection of 0.25ml of Omnipaque-240. Next, 1 ml of Depo- Medrol 80 mg/ml was injected intra-articularly with an initial reproduction of a significant component of the usual pain. This was followed with 1 ml of 1% Lidocaine. The needle was then removed without difficulty. (49 ml of Omnipaque-240 was wasted). Jasmeet's vital signs were stable throughout the procedure and were as recorded in nursing records. Follow up plans and appointments were discussed with Jasmeet. Post procedure instructions were given as documented in nursing records. Having met discharge criteria, Jasmeet was [facility] from the [facility]. COMMENTS: Post-procedure pain: VAS= 0/10. If the patient receives at least 50% improvement in pain and/or function for at least 3 months, this procedure can be repeated if needed. I personally performed this entire procedure. SKINNY ANDERS DO, MPH ABPMR-subspecialty board certification in Pain Medicine [facility] [facility]
[2023-10-27 15:14] VITALS: BP 148/96; PULSE 82; RESP 22; O2SAT 97
[2023-10-27] MEDS: methylPREDNISolone ACETATE 80 MG/ML VIAL IJ (15:17)
[2023-10-27] MEDS: Nerve Block Tray 1 EACH MC (15:17)
[2023-10-27] MEDS: Omnipaque 240 MG/ML 50 ML BTL IJ (15:17)
== END 2023-10-27 14:27 | disposition home or self-care (01) ==
LOC: PC 14:27
PROVIDERS: PCP Nurse Practitioner Family; Visit Provider Preventive Medicine Occupational Medicine
DX: M54.50 Low back pain, unspecified (principal); M46.1 Sacroiliitis, not elsewhere classified
CPT/HCPCS: 27096; 72200; J1010; Q9967

== ENCOUNTER 2024-03-16 03:09 | Outpatient (CLI) | payer MEDICARE, MEDICAID, SELFPAY ==
--- NOTE | 2024-03-21 16:25 | W.PFT ---
Date of service: 03/16/24 Time of Service: 15:00 Pulmonary Function Test Result Indications: Dyspnea Interpretation Spirometry: There is no airflow limitation. Bronchodilator response not completed due to patient refusal. Lung Volumes: Normal lung volumes Diffusion Capacity: Normal diffusion Airway Pressure: Normal airways resistance Impression Normal pulmonary function testing Clinical Correlation therefore is recommended.
== END 2024-03-21 23:59 | disposition home or self-care (01) ==
LOC: RT 03:09
PROVIDERS: PCP Nurse Practitioner Family; Visit Provider Nurse Practitioner Family
DX: R68.89 Other general symptoms and signs (principal); R06.00 Dyspnea, unspecified
CPT/HCPCS: 94010; 94726; 94729

== ENCOUNTER 2024-03-22 15:08 | Outpatient (CLI) | payer MEDICARE, MEDICAID, SELFPAY ==
--- NOTE | 2024-03-22 06:00 | DI.RAD_ITS ---
Exam(s) XR PAIN CLINIC SACRIOILIAC 2V EXAM: XR PAIN CLINIC SACRIOILIAC 2V CLINICAL HISTORY: DX: Sacroiliac Dysfunction TECHNIQUE: 2D and realtime digital imaging was performed. CONTRAST MATERIAL: Refer to procedure report. COMPARISON: No exams were available for comparison FINDINGS: Fluoroscopy was provided for Dr. Anders during the performance of a right sacroiliac joint injection. Please refer to the procedure report for complete details. Ka,r=8.4 mGy IMPRESSION: RADIATION DOSE DELIVERED: 0.0 0.0 0
[2024-03-22 15:13] VITALS: BP 113/74; PULSE 81; RESP 20; TEMP 36.7; O2SAT 96
--- NOTE | 2024-03-22 15:43 | PDOC.PAIN_ITS ---
Date of service: 03/22/24 Time of Service: 15:59 Pain Managment Procedure Note Procedure Note Procedure Note: PROCEDURE NOTE RIGHT INTRA-ARTICULAR SACROILIAC JOINT INJECTION Date of Service: March 22, 2024 Patient: Jasmeet Cardona Provider: Skinny Anders DO, MPH COMMENTS: I previously evaluated the patient in the office and their symptoms in relation to the sacroiliac joint pain have remained the same. Pre-operative diagnosis: Sacroiliac joint dysfunction ICD-10 M53.3 Post-operative diagnosis: Same Pre-procedure pain: VAS= 8/10 Jasmeet Cardona has been referred to our [facility] for a Right intra-articular Sacroiliac joint injection. Jasmeet was interviewed and the medical record reviewed. There were no medical, pharmacologic, radiographic or other structural contraindications to attempting a fluoroscopically-guided, contrast-enhanced, intra-articular Sacroiliac joint injection. The risks, benefits, and potential side effects of this procedure were reviewed with the patient. Questions and concerns were addressed. After it was clear that Jasmeet was fully informed about the procedure, the printed consent form was signed by the patient and myself. Jasmeet was placed in the prone position on the fluoroscopy table and an automated blood pressure cuff, 3 lead EKG, and pulse oximeter were applied. The skin entry point for approaching the Right sacroiliac joint was identified under the most advantageous fluoroscopic view and marked. Following thorough Chlorhexadine preparation of the skin and draping with sterile surgical drapes, 2 mls of 1% lidocaine was infiltrated into the skin at the entry point and the surrounding subcutaneous tissues. Next, a 3.5 22G spinal needle was placed under fluoroscopic guidance into the Right sacroiliac joint. Intra-articular placement was confirmed by a clear arthrogram resulting from the injection of 0.25ml of Omnipaque-240. Next, 1 ml of Depo- Medrol 80 mg/ml was injected intra- articularly with an initial reproduction of a significant component of the usual pain. This was followed with 1 ml of 1% Lidocaine. The needle was then removed without difficulty. (49 ml of Omnipaque-240 was wasted). Jasmeet's vital signs were stable throughout the procedure and were as recorded in nursing records. Follow up plans and appointments were discussed with Jasmeet. Post procedure instructions were given as documented in nursing records. Having met discharge criteria, Jasmeet was [facility] from the [facility]. COMMENTS: Post-procedure pain: VAS= 1/10. If the patient receives at least 50% improvement in pain and/or function for at least 3 months, this procedure can be repeated if needed. I personally performed this entire procedure. SKINNY ANDERS DO, MPH ABPMR-subspecialty board certification in Pain Medicine [facility] [facility]
[2024-03-22 15:49] VITALS: PULSE 74; RESP 11; O2SAT 95
[2024-03-22 15:50] VITALS: BP 149/90; PULSE 74; PULSE 78; RESP 10; O2SAT 93
[2024-03-22 15:51] VITALS: PULSE 84; RESP 10; O2SAT 93
[2024-03-22] MEDS: methylPREDNISolone ACETATE 80 MG/ML VIAL IJ (16:01)
[2024-03-22] MEDS: Nerve Block Tray 1 EACH MC (16:01)
[2024-03-22] MEDS: Omnipaque 240 MG/ML 50 ML BTL IJ (16:01)
== END 2024-03-22 15:09 | disposition home or self-care (01) ==
LOC: PC 15:08
PROVIDERS: PCP Nurse Practitioner Family; Visit Provider Preventive Medicine Occupational Medicine
DX: M53.3 Sacrococcygeal disorders, not elsewhere classified (principal); M54.50 Low back pain, unspecified
CPT/HCPCS: 27096; 72200; J1010; Q9967

== ENCOUNTER 2024-04-04 16:21 | Outpatient (REF) | payer MEDICARE, MEDICAID, SELFPAY ==
[2024-04-04 21:32] LABS: HCT 45.2 % (40.0-50.0); HGB 15.2 g/dL (13.5-17.5); MCH 29.5 pg (27.0-33.0); MCHC 33.6 % (32.0-36.0); MCV 88 fL (80-95); MPV 10.8 fL (8.0-11.0); Platelet Count 221 10^3/uL (130-400); RBC 5.15 10^6/uL (4.36-5.78); RDW 11.9 % (11.8-14.1); RDW-SD 38.6 fL; WBC 7.87 10^3/uL (4.4-10.8)
[2024-04-04 21:35] LABS: ESR 4 mm/hr (0-20)
[2024-04-04 23:32] LABS: ALT 23 U/L (16-63); AST 16 U/L (15-37); Albumin 4.1 g/dL (3.4-5.0); Alkaline Phosphatase 102 U/L (46-116); BUN 19 mg/dL (7-18); CREATININE 1.3 mg/dL (0.70-1.30); Calcium 8.9 mg/dL (8.5-10.1); Calculated LDL 99 mg/dL (<100); Chloride 106 mmol/L (98-107); Cholesterol 183 mg/dL (<200); Estimated GFR 60.59 (mL/min/1.73m2); Glucose 119 mg/dL (74-106); HDL Cholesterol 51 mg/dL (40-60); Potassium 4.3 mmol/L (3.5-5.1); Sodium 144 mmol/L (136-145); TSH (W/Ref FT4) 1.53 uIU/mL (0.36-3.74); Triglyceride 168 mg/dL (<150); Vitamin D 25 Total 37.3 ng/mL (30-100)
[2024-04-04 23:42] LABS: Uric Acid 5.3 mg/dL (3.5-7.2)
[2024-04-05 18:38] LABS: PSA, Screening 0.3 ng/mL (<=4.5)
== END 2024-04-04 16:22 | disposition home or self-care (01) ==
LOC: LBN 16:21
PROVIDERS: PCP Nurse Practitioner Family; Visit Provider Nurse Practitioner Family
DX: R53.83 Other fatigue (principal); E78.5 Hyperlipidemia, unspecified; E55.9 Vitamin D deficiency, unspecified; Z12.5 Encounter for screening for malignant neoplasm of prostate; F11.20 Opioid dependence, uncomplicated; F32.A Depression, unspecified; F41.9 Anxiety disorder, unspecified; G89.29 Other chronic pain
CPT/HCPCS: 80053; 80061; 82306; 84153; 85027; 85652; 84443; 84550; 86140

== ENCOUNTER 2024-05-15 11:08 | Emergency (ER) | payer MEDICARE, MEDICAID, SELFPAY ==
[2024-05-15] VITALS (42 sets, daily range): BP systolic 152–211; BP diastolic 83–115; PULSE 79–119; RESP 10–25; TEMP 36.4–36.9; O2SAT 93–99
--- NOTE | 2024-05-15 11:00 | RT.EKG_ITS ---
APPROVED REPORT Exam: Resting ECG Reason for Exam: Shakey, Sweating Patient Location: E HR:112 bpm ECG Measurements Heart Rate 112 AXIS OK 181 P 64 QRSd 90 QRS 28 QT 336 T 50 QTc 459 Conclusion Sinus tachycardia...rate> 99
--- NOTE | 2024-05-15 11:30 | DI.RAD_ITS ---
Exam(s) XR PORTABLE CHEST AP EXAM: XR PORTABLE CHEST AP CLINICAL HISTORY: shortness of breath 2 days TECHNIQUE: 2D digital imaging was performed of the chest. Three images were obtained. AP views wer e obtained. COMPARISON: CR XR PORTABLE CHEST AP from 05/09/2021 CR XR PORTABLE CHEST AP from 05/13/2021 FINDINGS: MEDIASTINUM: Normal. HEART: Normal. PULMONARY VASCULATURE: Normal. LUNGS: Clear. PLEURAL SPACE: No pleural effusion or pneumothorax. BONE:Within normal limits for the patient's age. OTHER FINDINGS:Normal. IMPRESSION: No acute pulmonary findings. DATA REPOSITORY: RADIATION DOSE DELIVERED:
[2024-05-15 11:50] LABS: Abs Immature Grans 0.01 10^3/uL (0.0-0.06); Absolute Basophil Count 0.02 10^3/uL (0.0-0.2); Absolute Lymphocyte Count 0.89 10^3/uL (1.2-3.4); Absolute Monocyte Count 0.42 10^3/uL (0.1-0.8); Absolute Neutrophil Count 3.68 10^3/uL (1.2-6.7); Basophils % 0.4 %; HCT 43.2 % (40.0-50.0); HGB 14.6 g/dL (13.5-17.5); Immature Grans % 0.2 %; Lymphocytes % 17.4 %; MCH 29.3 pg (27.0-33.0); MCHC 33.8 % (32.0-36.0); MCV 87 fL (80-95); MPV 10.4 fL (8.0-11.0); Monocytes % 8.2 %; Neutrophils % 71.8 %; Platelet Count 183 10^3/uL (130-400); RBC 4.98 10^6/uL (4.36-5.78); RDW 12.1 % (11.8-14.1); RDW-SD 38.6 fL; WBC 5.12 10^3/uL (4.4-10.8)
--- NOTE | 2024-05-15 12:02 | W.ED.GENAD ---
Discharge Plan Disposition Patient Disposition: Home Condition: Stable Discharge Details Clinical Impression: Short of breath on exertion, Anxiety Primary Care Provider: Jonathan Vargas ED Provider: Dov Shelton Home Meds and New Rx's Prescriptions: Continued hydrocortisone 0.5 % cream 1 applic TP BID apixaban 2.5 mg tablet 2.5 mg PO BID Qty: 180 4RF lorazepam 1 mg tablet 0.5 mg PO QHS PRN (Reason: anxiety) Qty: 30 0RF Rx Instructions: Prescribed through [facility], prior to changing practices: Dr. Restrepo. -hb losartan 50 mg tablet 50 mg PO DAILY Qty: 90 4RF sildenafil 25 mg tablet 25 mg PO DAILY PRN (Reason: sexual activity) Qty: 30 0RF Rx Instructions: administer 30 minutes to 4 hours before activity methadone 40 mg tablet,soluble 40 mg PO DAILY cyclobenzaprine 10 mg tablet 10 mg PO HS PRN (Reason: muscle spasm) Qty: 30 0RF Discharge Instructions Instructions: Shortness of Breath, Adult ED Additional Instructions: Please rest at home over the next few days. No exertional activities. Please contact your primary care physician to arrange follow-up. Call today to arrange timely follow-up next week. Additional outpatient diagnostic testing including cardiac stress test is warranted. Return to the ER immediately for any worsening or new concerning symptoms. Referrals: Jonathan Vargas, SCIENCE TECHNICIAN [Primary Care Provider] - [facility] General Mode of arrival: ambulatory. Date/Time Provider Initiated Documentation: 05/15/24 11:11. Limitations to Documentation: no limitations. Information obtained by: patient. HPI Narrative: 68yo male with history of hyperlipidemia, obstructive sleep apnea, opioid use disorder on maintenance therapy methadone, pulmonary embolism, hypertension, anxiety, here with chief complaint of dyspnea on exertion. Patient notes shortness of breath with his daily walking over the past 2 days. Today he noted significant shortness of breath while exerting himself sweeping snow off the cart. No associated chest pain. He notes he felt similar when he had pulmonary embolism in the past. He has been taking Eliquis as prescribed for at least a couple years. During episodes of dyspnea on exertion he feels associated presyncope. Patient denies leg swelling or calf pain. No fever. Related Data Home Medications ?Medication ?Instructions ?Recorded ?Confirmed hydrocortisone 0.5 % topical cream 1 applic topical BID 11/16/18 05/15/24 apixaban 2.5 mg tablet 2.5 mg PO BID #180 tabs 03/07/24 05/15/24 lorazepam 1 mg tablet 0.5 mg (1/2 x 1 mg) PO QHS PRN 03/07/24 05/15/24 anxiety #30 tabs losartan 50 mg tablet 50 mg PO DAILY #90 tabs 03/07/24 05/15/24 sildenafil 25 mg tablet 25 mg PO DAILY PRN sexual activity 03/07/24 05/15/24 #30 tabs cyclobenzaprine 10 mg tablet 10 mg PO HS PRN muscle spasm #30 04/04/24 05/15/24 tabs methadone 40 mg soluble tablet 40 mg PO DAILY 04/04/24 05/15/24 Previous Rx's ?Medication ?Instructions ?Recorded apixaban 2.5 mg tablet 2.5 mg PO BID #180 tabs 03/07/24 lorazepam 1 mg tablet 0.5 mg (1/2 x 1 mg) PO QHS PRN 03/07/24 anxiety #30 tabs losartan 50 mg tablet 50 mg PO DAILY #90 tabs 03/07/24 sildenafil 25 mg tablet 25 mg PO DAILY PRN sexual activity 03/07/24 #30 tabs cyclobenzaprine 10 mg tablet 10 mg PO HS PRN muscle spasm #30 04/04/24 tabs Allergies Allergy/AdvReac Type Severity Reaction Status Date / Time trimethoprim (From Bactrim) Allergy Other (See Verified 05/15/24 11:34 Comment) codeine AdvReac Intermediate GI UPSET Verified 05/15/24 11:34 cephalexin AdvReac Mild GI upset Verified 05/15/24 11:34 ibuprofen AdvReac Mild GI UPSET Verified 05/15/24 11:34 sulfamethoxazole (From AdvReac Mild Other (See Verified 05/15/24 11:34 Bactrim) Comment) GARAMYCIN EYE DROPS Allergy Intermediate Other (See Uncoded 05/15/24 11:34 Comment) General Stated Complaint: SOB BLANCA: 3 Review of Systems All systems reviewed & are unremarkable except as noted in HPI and below Constitutional Constitutional: Denies fever(s) Cardiovascular Cardiovascular: Reports as per HPI, Denies chest pain and Denies irregular heart rhythm Exam Const General: cooperative and anxious HENMD Head: normocephalic and atraumatic Mouth: moist mucous membranes Eyes Conjunctivae: normal conjunctivae Sclera: normal sclerae Neck Neck: trachea midline Resp Auscultation: clear to auscultation bilaterally, no rales, no rhonchi and no wheezes Cardio Rate: tachycardic Rhythm: regular rhythm Heart Sounds: no gallops, no murmurs and no rubs GI Palpation: soft, not firm, no guarding, no masses, not rigid and nontender Skin General skin exam: no rashes or lesions noted Neuro General: patient alert, patient awake, patient oriented x3 and tone normal Extrem General: no pedal edema, no calf tenderness and no edema Psych Appearance: grossly normal Mental Status: mental status grossly normal Mood: anxious mood Affect: anxious affect Attitude: cooperative Thought Process: normal Thought Content: normal Insight: insight good Course Vital Signs Vital signs: Vital Signs Respiratory Rate 14 05/15/24 11:15 Pulse Oximetry 99 05/15/24 11:15 Temperature 36.9 C 05/15/24 11:32 Temperature Source Oral 05/15/24 11:32 Pulse 106 H 05/15/24 11:45 Pulse 105 H 05/15/24 11:50 Respiratory Rate 18 05/15/24 11:50 Respiratory Effort Normal, Non-Labored 05/15/24 11:29 Respiratory Depth Normal 05/15/24 11:29 Respiratory Pattern Normal 05/15/24 11:29 Blood Pressure 190/115 H 05/15/24 11:45 Blood Pressure Mean 129 05/15/24 11:45 Blood Pressure Position Supine 05/15/24 11:32 Pulse Oximetry 96 05/15/24 11:50 Oxygen Delivery Method Room Air 05/15/24 11:32 Oxygen Flow Rate 0 05/15/24 11:16 Pain Level 0 05/15/24 11:32 Lab/Test Results Lab/Test Results: Laboratory Tests Range/Units 05/15/24 11:30 WBC (4.4-10.8) 10^3/uL 5.12 RBC (4.36-5.78) 10^6/uL 4.98 Hgb (13.5-17.5) g/dL 14.6 Hct (40.0-50.0) % 43.2 MCV (80-95) fL 87 MCH (27.0-33.0) pg 29.3 MCHC (32.0-36.0) % 33.8 RDW (11.8-14.1) % 12.1 Plt Count (130-400) 10^3/uL 183 MPV (8.0-11.0) fL 10.4 Immature Gran % % 0.2 Neutrophils % % 71.8 Lymphocytes % % 17.4 Monocytes % % 8.2 Eosinophils % % 2.0 Basophils % % 0.4 Nucleated RBC % (0.0-0.3) % 0.0 Absolute Neutrophils (1.2-6.7) 10^3/uL 3.68 Absolute Lymphocytes (1.2-3.4) 10^3/uL 0.89 L Absolute Monocytes (0.1-0.8) 10^3/uL 0.42 Absolute Eosinophils (0.0-0.7) 10^3/uL 0.10 Absolute Basophils (0.0-0.2) 10^3/uL 0.02 Medical Decision Making 1213 -- 68-year-old male with multiple medical problems including history of hypertension, hyperlipidemia, pulmonary embolism, on Eliquis, obstructive sleep apnea, anxiety, here with dyspnea on exertion over the past 2 days with associated presyncope. Patient is tachycardic and hypertensive. He saturating well in no respiratory distress. Lungs clear to auscultation. Patient is quite anxious. Screening EKG to assess for arrhythmia was reviewed and interpreted by me: Please see report, sinus tachycardia [address] depressions in lateral laterally, with no significant change from prior 2020 study. Concern for acute pulmonary embolism, refractory to Eliquis. Consider CHF and ACS. Plan to check labs. I am concerned that anxiety is contributing to his presentation today. I offered any cellulitic and patient declined. 1400 -- Initial trop negative. BNP 71. Chest x-ray was reviewed and interpreted by radiology: 1445 -- CT chest intepreted by radiology: 1. No evidence of acute pulmonary emboli, pulmonary infarction, pleural effusions, no other significant pulmonary findings. 2. No evidence of aortic dissection nor pericardial effusion TSH and repeat trop pending. 1550 --delta troponin without significant increase. TSH normal. Suspect anxiety and mild withdrawal from benzodiazepine. Patient notes he has been trying to wean himself off benzodiazepine use and is now using every other day. We discussed slower taper. Patient reassessed and stable. Plan for discharge with outpatient follow-up with PCP I do think outpatient stress test in followup is warranted. Usual customary discharge instructions were reviewed. Lab Data Lab results reviewed: Yes I reviewed the patient's lab results. Labs: Laboratory Tests Range/Units 05/15/24 05/15/24 05/15/24 11:30 11:40 11:50 WBC (4.4-10.8) 10^3/uL 5.12 RBC (4.36-5.78) 10^6/uL 4.98 Hgb (13.5-17.5) g/dL 14.6 Hct (40.0-50.0) % 43.2 MCV (80-95) fL 87 MCH (27.0-33.0) pg 29.3 MCHC (32.0-36.0) % 33.8 RDW (11.8-14.1) % 12.1 Plt Count (130-400) 10^3/uL 183 MPV (8.0-11.0) fL 10.4 Immature Gran % % 0.2 Neutrophils % % 71.8 Lymphocytes % % 17.4 Monocytes % % 8.2 Eosinophils % % 2.0 Basophils % % 0.4 Nucleated RBC % (0.0-0.3) % 0.0 Absolute Neutrophils (1.2-6.7) 10^3/uL 3.68 Absolute Lymphocytes (1.2-3.4) 10^3/uL 0.89 L Absolute Monocytes (0.1-0.8) 10^3/uL 0.42 Absolute Eosinophils (0.0-0.7) 10^3/uL 0.10 Absolute Basophils (0.0-0.2) 10^3/uL 0.02 APTT (23.6-32.8) sec 25.9 D-Dimer (<500) ng/mlFEU 280 Sodium (136-145) mmol/L 139 Potassium (3.5-5.1) mmol/L 3.4 L Chloride (98-107) mmol/L 103 Carbon Dioxide (21.0-32.0) mmol/L 26.5 Anion Gap (3-11) mmol/L 9.5 BUN (7-18) mg/dL 19 H Creatinine (0.70-1.30) mg/dL 1.2 Est GFR (CKD-EPI 2020) (mL/min/1.73m2) 66.70 Glucose (74-106) mg/dL 154 H Calcium (8.5-10.1) mg/dL 8.8 Magnesium (1.8-2.4) mg/dL 2.0 Total Bilirubin (0.2-1.0) mg/dL 0.44 AST (15-37) U/L 24 ALT (16-63) U/L 26 Alkaline Phosphatase (46-116) U/L 83 Troponin I (<or=76) ng/L 5 NT-Pro-B Natriuret Pep (<300) pg/mL 71 Total Protein (6.4-8.2) g/dL 7.2 Albumin (3.4-5.0) g/dL 4.0 COVID-19 Source Nasopharynx SARS-CoV-2 (PCR) (Negative) Negative Influenza Type A (PCR) (Negative) Negative Influenza Type B (PCR) (Negative) Negative RSV (PCR) (Negative) Negative Range/Units 05/15/24 12:40 WBC (4.4-10.8) 10^3/uL RBC (4.36-5.78) 10^6/uL Hgb (13.5-17.5) g/dL Hct (40.0-50.0) % MCV (80-95) fL MCH (27.0-33.0) pg MCHC (32.0-36.0) % RDW (11.8-14.1) % Plt Count (130-400) 10^3/uL MPV (8.0-11.0) fL Immature Gran % % Neutrophils % % Lymphocytes % % Monocytes % % Eosinophils % % Basophils % % Nucleated RBC % (0.0-0.3) % Absolute Neutrophils (1.2-6.7) 10^3/uL Absolute Lymphocytes (1.2-3.4) 10^3/uL Absolute Monocytes (0.1-0.8) 10^3/uL Absolute Eosinophils (0.0-0.7) 10^3/uL Absolute Basophils (0.0-0.2) 10^3/uL APTT (23.6-32.8) sec D-Dimer (<500) ng/mlFEU Sodium (136-145) mmol/L Potassium (3.5-5.1) mmol/L Chloride (98-107) mmol/L Carbon Dioxide (21.0-32.0) mmol/L Anion Gap (3-11) mmol/L BUN (7-18) mg/dL Creatinine (0.70-1.30) mg/dL Est GFR (CKD-EPI 2020) (mL/min/1.73m2) Glucose (74-106) mg/dL Calcium (8.5-10.1) mg/dL Magnesium (1.8-2.4) mg/dL Total Bilirubin (0.2-1.0) mg/dL AST (15-37) U/L ALT (16-63) U/L Alkaline Phosphatase (46-116) U/L Troponin I (<or=76) ng/L Cancelled NT-Pro-B Natriuret Pep (<300) pg/mL Total Protein (6.4-8.2) g/dL Albumin (3.4-5.0) g/dL COVID-19 Source SARS-CoV-2 (PCR) (Negative) Influenza Type A (PCR) (Negative) Influenza Type B (PCR) (Negative) RSV (PCR) (Negative) Quality:SDOH Health Related Social Needs: No Data to Display PFSH All Active Problems (Updated 05/15/24 @ 15:19 by Dov Shelton MD) Anxiety (Chronic) Short of breath on exertion (Acute) Arthralgia (Acute) Depression (Chronic) Dyspnea (Acute) Exercise intolerance (Acute) Hyperlipidemia (Acute) Fatigue (Acute) Chronic pain (Chronic) Lumbosacral spondylosis without myelopathy (Acute) Obstructive sleep apnea (Chronic) Phlegm in throat (Acute) History of excessive cerumen (Acute) DVT prophylaxis (Acute) Opioid use disorder, moderate, on maintenance therapy (Acute) Elevated troponin I level (Acute) Bilateral pulmonary embolism (Acute) Hives (Acute) Vitamin D deficiency (Acute) Hearing loss, bilateral (Acute) Tinnitus (Acute) Globus sensation (Acute) Sacroiliac joint dysfunction of right side (Acute) Anxiety (Chronic) HTN (hypertension) (Acute) Medical History Diarrhea Chronic sore throat Choking Lower back pain Sleep apnea Snoring Chronic back pain Bilateral knee pain Contact potentially hazardous substances pt worked with [employer] for his job in . [place] Severe sleep apnea per pt. states he stops breathing 60x/hr Mild cognitive impairment History of hepatitis C s/p treatment History of torn meniscus of left knee Shoulder pain Hematospermia Palpitations Pain, joint, shoulder, left Elevated blood pressure reading without diagnosis of hypertension Insomnia related to another mental disorder Postinflammatory hyperpigmentation Overweight Sacroiliitis Pigmented nevus Skin tag Urinary hesitancy Psoriasis of scalp Lumbago with sciatica, left side Dupuytrens contracture Alopecia areata IV drug abuse Substance abuse was addicted to heroin. In process of weaning off suboxone 2018, previously on methadone (cannot tolerate the dye). Erectile dysfunction GERD (gastroesophageal reflux disease) Vertigo Irritable bowel syndrome Osteoarthritis Surgical History History of esophagogastroduodenoscopy (~03/2023) Hx of colonoscopy (~08/17/11) H/O medial meniscus repair of left knee Family History Father , 80 Bladder cancer Chronic back pain Cancer History of blood clots Mother retirement resident Hypertension Brother No problems noted. Sister Multiple sclerosis Brother Anxiety History of blood clots Paternal Grandfather Prostate cancer Paternal Uncle Prostate cancer Social History Smoking/Tobacco Use Status: Former Tobacco Use tobacco type: cigarettes, cigars and smokeless tobacco Quit Date: 06/21/92 Tobacco: How many years used: 20 Smokeless tobacco user: chewing tobacco Second Hand Exposure: Yes Smoking risk assessment performed?: Yes Alcohol Intake: never Details: Pt reports he hates alcohol and doesn't drink Drug use: Rarely Substance use type: does not use and other Details: former heroin use, on methadone for the past 6 months Details: currently on methadone Caregiver/Support person: No Household members: none Housing: house Communication Needs: Corrective Lenses Do you need help understanding health information?: Often current occupation: Retired Pets and animals: No Sexually active: No Do you think of yourself as: straight/heterosexual Current gender identity: male Other: Lives alone in [id number] home in [place], wood stove and only solar What is your relationship status?: never How often do you talk on the phone with friends or family?: decline to answer How often do you get together with friends or relatives?: decline to answer How often do you attend judaism or taoism services?: decline to answer Do you belong to any clubs or organized social groups?: decline to answer Panel score (0-1 are the most socially isolated patients): 0 What type of physical activity do you participate in: walking Duration: 30-45 minutes/day Frequency: daily Darlene/Taoism: No preference Special darlene needs: No Seatbelt use: always Drive intox or ride w/intox wheelchair van driver: No Do you feel safe at home: Yes Do you feel safe in your relationship?: Yes
[2024-05-15 12:13] LABS: PTT Activated 25.9 sec (23.6-32.8)
[2024-05-15 12:17] LABS: ALT 26 U/L (16-63); AST 24 U/L (15-37); Alkaline Phosphatase 83 U/L (46-116); Anion Gap 9.5 mmol/L (3-11); BUN 19 mg/dL (7-18); Bilirubin, Total 0.44 mg/dL (0.2-1.0); CO2 26.5 mmol/L (21.0-32.0); CREATININE 1.2 mg/dL (0.70-1.30); Calcium 8.8 mg/dL (8.5-10.1); Chloride 103 mmol/L (98-107); Glucose 154 mg/dL (74-106); NT-proBNP 71 pg/mL (<300); Potassium 3.4 mmol/L (3.5-5.1); Sodium 139 mmol/L (136-145); Total Protein 7.2 g/dL (6.4-8.2); Troponin I 5 ng/L (<or=76)
[2024-05-15 12:34] LABS: D-Dimer 280 ng/mlFEU (<500)
[2024-05-15 12:35] LABS: COVID-19 PCR Negative (Negative); Influenza A PCR Negative (Negative); Influenza B PCR Negative (Negative); RSV PCR Negative (Negative); Source Nasopharynx
--- NOTE | 2024-05-15 12:45 | DI.CT_ITS ---
Exam(s) CT CHEST PE CTA EXAM: CT CHEST PE CTA CLINICAL HISTORY: shortness of breath, prior PE. TECHNIQUE: Imaging Protocol: CT angiography of the chest was performed using pulmonary embolus reji col. Multi planar reconstructions were performed. CONTRAST MATERIAL: Intravenous: Omnipaque 350 Contrast volume: 100 cc COMPARISON: CT CT CHEST PE CTA from 05/09/2021 CR XR PORTABLE CHEST AP from 05/15/2024 FINDINGS: CHEST: PULMONARY ARTERIES: There are no intraluminal filling defects to suggest acute pulmonary emboli (as w ere present in April 2021). LUNGS: There are no infiltrates nor evidence of pulmonary infarction.. No ominous pulmonary nodules. No pleural effusions. No findings in the trachea and mainstem bronchi MEDIASTINUM: There is no hilar nor mediastinal adenopathy. CARDIAC: Heart size is upper normal. There is no pericardial effusion.Caliber of the thoracic aorta is within normal limits. No evidence of dissection. There is no significant shift of the interventri cular septum. No intravenous contrast reflux into the intrahepatic IVC. PARTIALLY VISUALIZED UPPERMOST ABDOMEN: Small gallstones are again noted report IMPRESSION: 1. No evidence of acute pulmonary emboli, pulmonary infarction, pleural effusions, no other signific ant pulmonary findings. 2. No evidence of aortic dissection nor pericardial effusion Called by myself to ER 05/15/2024 2:25 p.m. RADIATION DOSE DELIVERED: 117.94mGy.cm Total DLP DATA REPOSITORY: All CT scans at this facility are submitted to the National Radiology Data Registry (NRDR) Dose Index Registry (DIR) with the [employer] ([employer]). RADIATION OPTIMIZATION: All CT scans at this facility use at least one of these dose optimization te chniques: automated exposure control; mA and/or kV adjustment per patient size (includes targeted exa ms where dose is matched to clinical indication); or iterative reconstruction.
[2024-05-15] MEDS: Normal Saline - Diluent 50 ML VIAL IJ (14:05)
[2024-05-15] MEDS: Omnipaque 350 MG/ML 100 ML BTL IJ (14:06)
[2024-05-15 15:19] LABS: TSH (W/Ref FT4) 2.41 uIU/mL (0.36-3.74)
[2024-05-15 15:45] LABS: Troponin I 7 ng/L (<or=76)
== END 2024-05-15 16:21 | disposition home or self-care (01) ==
PROVIDERS: Emergency Provider Student in an Organized Health Care Education/Training Program; PCP Nurse Practitioner Family
DX: R06.02 Shortness of breath (principal); F41.9 Anxiety disorder, unspecified; R00.0 Tachycardia, unspecified; F11.20 Opioid dependence, uncomplicated; I10 Essential (primary) hypertension; Z86.711 Personal history of pulmonary embolism; Z79.01 Long term (current) use of anticoagulants; Z87.891 Personal history of nicotine dependence
CPT/HCPCS: 36415; 71275; 80053; 87637; 93005; 99285; 71045; 83735; 83880; 84443; 84484; 85025; 85379; 85730; 93010; 99284; J3490

== ENCOUNTER 2024-05-29 01:19 | Outpatient (CLI) | payer MEDICARE, MEDICAID, SELFPAY ==
--- NOTE | 2024-05-29 05:30 | ETT_ITS ---
APPROVED REPORT Exam: Exercise Treadmill Patient Location: Out-Patient Room/Bed: Stress Nurse: Silvia Bell RN Ordering Provider:JOHNNY FREDERICK, Contact Number: [phone] BMI: 30.55 Baseline Rhythm: Sinus Rhythm Indications: SOB, Medical History Medical History: Anxiety, depression, HLD, JARED, opiod use disorder (on maintenance therapy), bilatera l PE's, HTN, low back pain, mild cognitive impairment, hepatitis C, insomnia, overweight, vertigo, GE RD Cardiac Medications: Apixaban, cyclobenzaprine, lorazepam, losartan, methadone, sildenafil, hydrochlo rothiazide Allergies: Bactrim, codeine, cephalaxin, ibuprofen Cardiac Risk Factors: HTN, HLD, former smoker, overweight Previous Cardiac Procedures: None Pretest Chest Pain Characteristics: None Exercise History: Indeterminate Physical Disabilities: Back, legs Lung Sounds: Clear to auscultation Heart Sounds: Regular Stress Test Details Test: Exercise stress testing was performed using a Amadou protocol. Rest Stress HR Resting HR Supine: 86 bpm Max Heart Rate (APMHR): 154 bpm Resting HR Standin bpm Target HR (85% APMHR): 131 bpm Max HR Achieved: 136 bpm % of APMHR: 88 Recovery HR: 85 bpm HR response to stress: Accelerated HR response to stress BP Resting BP Supine: 148/76 mmHg Resting BP Standin/92 mmHg Max BP: 186/96 mmHg Recovery BP: 136/72 mmHg BP response to stress: Normal blood pressure response to stress. ECG Resting ECG: Sinus Rhythm Ectopy: None Stress ECG: Sinus Tachycardia ST Change: No significant ST segment changes noted Arrhythmia: None Recovery ECG: Sinus Rhythm Recovery ST Change: No significant ST segment changes noted Recovery Arrhythmia: None Clinical Reason for Termination: Target HR Achieved, Fatigue Stress Symptoms: General Fatigue Exercise duration: 03 min16 sec Highest Stage Reached: Stage 2: 2.5 mph at 12% grade. Exercise capacity: 4.95 METs Angina Score: None Delgadillo Treadmill Score: 2.8 Rate Pressure Product: [id number] Stress ECG Conclusion 1. Resting electrocardiogram was normal 2. Patient exercised on the Amadou protocol for 3 minutes and 16 seconds, poor exercise capacity 3. Accelerated heart rate response to exercise. The patient achieved 88% of predicted heart rate for age. Normal blood pressure response to exercise 4. There was no electrocardiographic evidence of myocardial ischemia 5. There were no significant dysrhythmias Delgadillo Treadmill Score is 2.8 which is Moderate risk. Stress Test Summary STAGE Time (mins) Speed (mph) Grade (%) HR BP SpO2 SYMPTOMS METS Supine 86 148/76 Standing 95 152/92 97% 1 3 1.7 10 129 4.5 2 6 2.5 12 133 7 1 min recovery 119 186/96 98% 3 min recovery 96 146/70 98% 6 min recovery 85 136/72 97%
== END 2024-05-29 01:39 ==
LOC: DI 01:19
PROVIDERS: PCP Nurse Practitioner Family; Visit Provider Nurse Practitioner Family
DX: R06.02 Shortness of breath (principal)
CPT/HCPCS: 93016; 93018; 93017

== ENCOUNTER 2024-06-06 21:30 | Outpatient (REF) | payer MEDICARE, MEDICAID, SELFPAY ==
[2024-06-06 21:56] LABS: BUN 18 mg/dL (7-18); CREATININE 1.3 mg/dL (0.70-1.30); Calcium 9.4 mg/dL (8.5-10.1); Chloride 104 mmol/L (98-107); Estimated GFR 60.59 (mL/min/1.73m2); Glucose 114 mg/dL (74-106); Potassium 3.6 mmol/L (3.5-5.1); Sodium 143 mmol/L (136-145)
== END 2024-06-06 21:31 | disposition home or self-care (01) ==
LOC: LBN 21:30
PROVIDERS: PCP Nurse Practitioner Family; Visit Provider Nurse Practitioner Family
DX: I10 Essential (primary) hypertension (principal)
CPT/HCPCS: 80048

== ENCOUNTER 2025-04-25 15:44 | Outpatient (REF) | payer MEDICARE, MEDICAID, SELFPAY ==
[2025-04-25 20:58] LABS: TSH (W/Ref FT4) 1.88 uIU/mL (0.36-3.74)
[2025-04-25 21:18] LABS: Hemoglobin A1C 5.4 % (<5.7)
[2025-04-25 21:20] LABS: ALT 39 U/L (16-63); AST 30 U/L (15-37); Albumin 4.3 g/dL (3.4-5.0); Alkaline Phosphatase 106 U/L (46-116); Anion Gap 11.0 mmol/L (3-11); BUN 20 mg/dL (7-18); Bilirubin, Total 0.5 mg/dL (0.2-1.0); CO2 27.0 mmol/L (21.0-32.0); Calcium 8.8 mg/dL (8.5-10.1); Chloride 104 mmol/L (98-107); Cholesterol 177 mg/dL (<200); Glucose 118 mg/dL (74-106); HDL Cholesterol 43 mg/dL (>or=40); Potassium 3.7 mmol/L (3.5-5.1); Sodium 142 mmol/L (136-145); Total Protein 7.1 g/dL (6.4-8.2); Vitamin B12 433 pg/mL (193-986)
[2025-04-26 18:15] LABS: PSA, Screening 0.7 ng/mL (<=4.5)
== END 2025-04-25 15:45 | disposition home or self-care (01) ==
LOC: NCHCN 15:44
PROVIDERS: PCP Nurse Practitioner Family; Visit Provider Nurse Practitioner Family
DX: R73.9 Hyperglycemia, unspecified (principal); E78.5 Hyperlipidemia, unspecified; R20.2 Paresthesia of skin; Z12.5 Encounter for screening for malignant neoplasm of prostate; R53.83 Other fatigue
CPT/HCPCS: 80053; 80061; 84153; 82607; 83036; 84443